=== PATIENT | female | born 1960 | race Hispanic/Latino ===

== ENCOUNTER 2016-04-05 11:45 | Emergency (ER) | payer MEDICARE ==
[2016-04-05 12:22] VITALS: BP 148/102
--- NOTE | 2016-04-05 14:25 | Emergency Department Report ---
Chief Complaint: Abdominal Pain Stated Complaint: KIDNEY PAIN/N/V - HPI History of Present Illness: 55-year-old female complaining of 2 weeks of bilateral flank pain. Patient states she was sent by her PMD to rule out acute renal failure/KRISTIE due to possible elevated creatinine as per primary care doctor as per patient patient denies any fever chills nausea or vomiting, mild increased urinary frequency - ROS Review of Systems: Bilateral flank pain worse on left and right x 2 weeks - Exam Vital Signs: Vital Signs 04/05/16 12:19 Temperature 99.8 F H Pulse Rate 88 Respiratory 18 Rate Blood Pressure 148/102 O2 Sat by Pulse 98 Oximetry Physical Exam: Left-sided CVA tenderness mild MSE screening note: Focused history and physical exam performed. Due to findings the following was ordered: Screening Assessment/Plan/Differential Dx: Flank pain, possible renal colic,? KRISTIE 1- This initial assessment/diagnostic orders/clinical plan/ treatment(s) is/are subject to change based on pt's health status, clinical progression and re- assessment by fellow clinical providers in the ED. Further treatment and workup at subsequent clinical provers discretion. Patient/guardians urged not to elope from ED as their condition may be serious if not clinically assessed and managed. 2-basic labs, BMP, CT noncontrast abdomen and pelvis, UA, urine culture ED Medical Decision Making - Lab Data Result diagrams: 04/05/16 15:34 04/05/16 15:34 ED Disposition for MSE Condition: Stable Instructions: Abdominal Pain (ED)
--- NOTE | 2016-04-05 15:14 | Cat Scan Report ---
CT scan of abdomen and pelvis without IV contrast: History: Bilateral flank pain. Findings: Normal lung bases. No pleural or pericardial effusion. Normal liver spleen and pancreas. Patient status post cholecystectomy. Normal adrenals and kidney parenchyma and bladder. No calculi or evidence of hydronephrosis. No free intraperitoneal fluid or. No evidence of adenopathy. Normal aorta. No evidence of appendicitis. No evidence of diverticulitis. Diverticulosis sigmoid and distal descending colon. Gaseous colon with moderate volume stool in colon. Impression: No acute abdominal findings. Diverticulosis sigmoid and distal descending colon.
[2016-04-05 16:09] LABS: Mucus,Urine FEW /HPF
[2016-04-05 16:17] LABS: Bilirubin,Urine NEG (Negative); Blood,Urine MOD (Negative); Ketones,Urine NEG (Negative); Leukocyte Esterase,Urine SM (Negative); Nitrite,Urine NEG (Negative); Protein,Urine <15 mg/dL mg/dL (Negative); Urobilinogen,Urine < 2.0 mg/dL (<2.0)
[2016-04-05 16:26] LABS: Basophils % (Auto) 1.3 % (0.0-1.8); Eosinophils % (Auto) 0.2 % (0.0-4.3); Hematocrit 45.8 % (30.3-42.9); Mean Corpuscular HGB Conc 33 % (30-34); Mean Corpuscular Hemoglobin 31 pg (28-32); Mean Corpuscular Volume 93 fl (79-97); Platelet Count 261 K/mm3 (140-440); Red Blood Count 4.92 M/mm3 (3.65-5.03); Red Cell Distribution Width 14.9 % (13.2-15.2); White Blood Count 7.6 K/mm3 (4.5-11.0)
[2016-04-05 16:27] LABS: BUN/Creatinine Ratio 13.63; Calcium 9.4 mg/dL (8.4-10.2); Chloride 98.2 mmol/L (98-107); Potassium 4.4 mmol/L (3.6-5.0)
--- NOTE | 2016-04-06 19:06 | ED Elopement Review ---
ED Pt Elopement review - Results review Lab results: Laboratory Tests 04/05/16 04/05/16 04/05/16 15:30 15:34 15:34 WBC 7.6 RBC 4.92 Hgb 15.0 H Hct 45.8 H MCV 93 MCH 31 MCHC 33 RDW 14.9 Plt Count 261 Lymph % (Auto) 20.9 [place] % (Auto) 4.4 Eos % (Auto) 0.2 Baso % (Auto) 1.3 Lymph # 1.6 [place] # 0.3 Eos # 0.0 Baso # 0.1 Seg Neutrophils % 73.2 H Seg Neutrophils # 5.6 Sodium 137 Potassium 4.4 Chloride 98.2 Carbon Dioxide 23 Anion Gap 20 BUN 15 Creatinine 1.1 Estimated GFR 52 BUN/Creatinine Ratio 13.63 Glucose 119 H Calcium 9.4 Total Creatine Kinase 58 Urine Color Yellow Urine Turbidity Clear Urine pH 6.0 Ur Specific [place] 1.010 Urine Protein <15 mg/dl Urine Glucose (UA) Neg Urine Ketones Neg Urine Blood Mod Urine Nitrite Neg Ur Reducing Substances Not Reportable Urine Bilirubin Neg Urine Ictotest Not Reportable Urine Urobilinogen < 2.0 Ur Leukocyte Esterase Sm Urine WBC (Auto) 3.0 Urine RBC (Auto) 1.0 U Epithel Cells (Auto) 2.0 Urine Mucus Few - Call Back decision Pt Call Back Decision: Pt to F/U with PMD
== END 2016-04-05 22:00 | disposition left against medical advice (07) ==
LOC: ED 11:45
DX: R10.9 Unspecified abdominal pain (principal); R11.2 Nausea with vomiting, unspecified; R35.8 Other polyuria; Z53.21 Procedure and treatment not carried out due to patient leaving prior to being seen by health care provider
CPT/HCPCS: 36415; 74176; 80048; 81001; 82550; 85025; 87086

== ENCOUNTER 2017-02-05 20:35 | Inpatient (IN) | payer MEDICARE ==
[2017-02-05 22:50] LABS: Anion Gap 22 mmol/L; BUN/Creatinine Ratio 14; Blood Urea Nitrogen 15 mg/dL (7-17); Carbon Dioxide 21 mmol/L (22-30); Chloride 102.2 mmol/L (98-107); Glucose 93 mg/dL (65-100); Potassium 4.4 mmol/L (3.6-5.0); Sodium 141 mmol/L (137-145)
[2017-02-05 23:06] LABS: Urine Drugs of Abuse Note Disclamer
[2017-02-05 23:40] LABS: Hemoglobin 11.9 gm/dl (10.1-14.3); Mean Corpuscular HGB Conc 31 % (30-34); Mean Corpuscular Hemoglobin 30 pg (28-32); Mean Corpuscular Volume 95 fl (79-97); Red Blood Count 4.01 M/mm3 (3.65-5.03); Red Cell Distribution Width 15.6 % (13.2-15.2); White Blood Count 11.7 K/mm3 (4.5-11.0)
[2017-02-05 23:43] LABS: Platelet Count 314 K/mm3 (140-440)
[2017-02-05 23:52] LABS: Bilirubin,Urine NEG (Negative); Blood,Urine SM (Negative); Ketones,Urine NEG (Negative); Leukocyte Esterase,Urine LG (Negative); Mucus,Urine FEW /HPF; Nitrite,Urine NEG (Negative); Protein,Urine <15 mg/dL mg/dL (Negative); Urobilinogen,Urine < 2.0 mg/dL (<2.0)
[2017-02-06] MEDS ORDERED: ZOFRAN IV ONE (08:29)
[2017-02-06] MEDS ORDERED: MORPHINE IV ONE ×2 (08:29→11:51)
--- NOTE | 2017-02-06 08:44 | Emergency Department Report ---
HPI - General Chief Complaint: Chest Pain Time Seen by Provider: 02/06/17 08:03 - HPI HPI: This is a 56-year-old female presents to the emergency department from [place] with a complaint of some midsternal left-sided chest pain that began yesterday. She took a sublingual nitroglycerin with some relief but not resolution. It started off at 10 out of 10 in intensity and is now about a 5 out of 10 and radiates towards the mid back. She has a past medical history of rheumatoid arthritis, COPD, GERD, liver disease, seizures, lupus. No recent travel. Her primary care physician is Dr. Cathy Durham and her manager heart is Dr. Ware. ED Past Medical Hx - Past Medical History Previous Medical History?: Yes Hx GERD: Yes Hx Liver Disease: Yes Hx Arthritis: Yes (rhematoid) Hx Seizures: Yes Hx COPD: Yes Additional medical history: lupus - Surgical History Past Surgical History?: Yes Hx Appendectomy: Yes Additional Surgical History: left knee replacement - Social History Smoking Status: Current Every Day Smoker Substance Use Type: None - Medications Home Medications: Home Medications Medication Instructions Recorded Confirmed Last Taken Type HYDROcodone/APAP 7.5-325 [[place] 1 each PO Q8HR PRN #12 tablet 03/03/16 02/06/17 02/05/17 Rx 7.5-325 mg TAB] Tiotropium [Spiriva] 18 mcg IH QDAY 03/03/16 02/06/17 02/05/17 History Amitriptyline [Elavil] 100 mg PO QHS 02/06/17 02/06/17 02/05/17 History AtorvaSTATin [Lipitor] 20 mg PO QHS 02/06/17 02/06/17 02/05/17 History Clonidine HCl [Kapvay] 0.1 mg PO BID 02/06/17 02/06/17 02/05/17 History Cyclobenzaprine [Flexeril] 10 mg PO TID PRN 02/06/17 02/06/17 02/05/17 History FLUoxetine HCL [Fluoxetine HCl] 80 mg PO QAM 02/06/17 02/06/17 02/05/17 History Fluticasone/Vilanterol [Breo 1 each IH DAILY 02/06/17 02/06/17 02/05/17 History Ellipta 100-25 Mcg INH] Gabapentin [Neurontin] 300 mg PO Q8HR 02/06/17 02/06/17 02/05/17 History Ipratropium/Albuterol Sulfate 1 ampul IH Q6HR 02/06/17 02/06/17 02/05/17 History [DUONEB *Not for PRN Use*] Ranitidine HCl [Acid Child Care Sitter] 150 mg PO BID 02/06/17 02/06/17 02/05/17 History levETIRAcetam [Keppra TAB] 1,000 mg PO BID 02/06/17 02/06/17 02/05/17 History ED Review of Systems ROS: Stated complaint: MEDICAL CLEARANCE Other details as noted in HPI Comment: All other systems reviewed and negative Constitutional: denies: chills, fever Eyes: denies: eye pain, eye discharge, vision change ENT: denies: ear pain, throat pain Respiratory: denies: cough, wheezing Cardiovascular: chest pain. denies: edema Gastrointestinal: denies: abdominal pain, nausea, diarrhea Genitourinary: denies: urgency, dysuria, discharge Musculoskeletal: back pain, arthralgia Skin: denies: rash, lesions Neurological: denies: headache, weakness, paresthesias Physical Exam - Physical Exam Vital Signs: Vital Signs 02/05/17 02/05/17 02/06/17 20:55 21:36 01:15 Temperature 98.6 F 98.6 F 98.4 F Pulse Rate 105 H 105 H 82 Respiratory 20 18 Rate Blood Pressure 136/78 136/76 133/74 O2 Sat by Pulse 97 97 98 Oximetry 02/06/17 02/06/17 02/06/17 04:56 08:31 08:33 Temperature 98.3 F Pulse Rate 96 H 73 Respiratory 18 15 Rate Blood Pressure 129/87 O2 Sat by Pulse 95 99 Oximetry Physical Exam: GENERAL: The patient is well-developed well-nourished. HENT: Normocephalic. Atraumatic. Patient has moist mucous membranes. EYES: Extraocular motions are intact. Pupils equal reactive to light bilaterally. NECK: Supple. Trachea is midline. CHEST/LUNGS: Clear to auscultation. There is no respiratory distress noted. Chest pain is not reproducible to palpation of the chest wall. HEART/CARDIOVASCULAR: Regular. There is no tachycardia. There is no gallop rub or murmur. ABDOMEN: Abdomen is soft, nontender. Patient has normal bowel sounds. There is no abdominal distention. SKIN: Skin is warm and dry. NEURO: The patient is awake, alert, and oriented. The patient is cooperative. The patient has no focal neurologic deficits. The patient has normal speech. MUSCULOSKELETAL: There is no tenderness or deformity. There is no limitation range of motion. There is no evidence of acute injury. ED Course Vital Signs 02/05/17 02/05/17 02/06/17 20:55 21:36 01:15 Temperature 98.6 F 98.6 F 98.4 F Pulse Rate 105 H 105 H 82 Respiratory 20 18 Rate Blood Pressure 136/78 136/76 133/74 O2 Sat by Pulse 97 97 98 Oximetry 02/06/17 02/06/17 02/06/17 04:56 08:31 08:33 Temperature 98.3 F Pulse Rate 96 H 73 Respiratory 18 15 Rate Blood Pressure 129/87 O2 Sat by Pulse 95 99 Oximetry ED Medical Decision Making - Lab Data Result diagrams: 02/05/17 21:56 02/05/17 21:56 - EKG Data -: EKG Interpreted by Me EKG shows normal: sinus rhythm, axis, intervals, QRS complexes (right bundle branch block), ST-T waves Rate: normal - EKG Data When compared to previous EKG there are: no significant change Interpretation: unchanged when compared t (03/03/16) - Radiology Data Radiology results: report reviewed, image reviewed interpreted by me: Chest x-ray does not show any acute process. There are no pleural effusions, obvious pneumonia and there is no pneumothorax. VENTILATION/PERFUSION LUNG SCAN: 02/06/17 CLINICAL: Shortness of breath TECHNIQUE: 15.0 millicuries of xenon-133 was administered by aerosol and 5.0 mCi of technetium 99m MAA was administered intravenously. Comparison is made to a same day chest x-ray. FINDINGS: Inhalation of Xenon gas demonstrates a normal distribution of the activity throughout both lungs. The wash out phases demonstrate moderate bilateral predominantly basal retention of activity. After injection of Technetium 99m macroaggregated albumin gamma camera imaging of the lungs in multiple projections demonstrates normal pulmonary contours with a relatively homogeneous distribution of activity. No suspicious focal areas of perfusion deficiency are identified. IMPRESSION: Low probability for pulmonary embolus. Transcribed By: REF Dictated By: ROBINSON RENO MD Electronically Authenticated By: ROBINSON RENO MD Signed Date/Time: 02/06/17 1417 - Medical Decision Making 56-year-old female presents with some midsternal left-sided chest pain. So far labs within mostly unremarkable including negative troponins 2 which did have a slightly elevated and equivocal d-dimer. A ventilation perfusion scan was done that came back as a low probability for a pulmonary embolus. Chest x-ray did not show any acute process. The patient has not had a full cardiac workup in a while including stress test and/or cardiac cath and therefore my plan is to admit her to the hospital for further evaluation and either a stress test or cardio consultation. The patient has been accepted for admission by the hospitalist, Dr. Sharpe. - Differential Diagnosis [place], PE, Costochondritis, Pneumonia Critical Care Time: No Critical care attestation.: If time is entered above; I have spent that time in minutes in the direct care of this critically ill patient, excluding procedure time. ED Disposition Clinical Impression: Chest pain Qualifiers: Chest pain type: unspecified Qualified Code(s): R07.9 - Chest pain, unspecified Arthralgia Qualifiers: Joint pain location: unspecified Qualified Code(s): M25.50 - Pain in unspecified joint Disposition: DC-09 OP ADMIT IP TO THIS HOSP Is pt being admited?: Yes Does the pt Need Aspirin: Yes Condition: Stable Instructions: Chest Pain (ED) Referrals: PRIMARY CARE, [Primary Care Provider] - 3-5 Days Time of Disposition: 15:11
--- NOTE | 2017-02-06 09:46 | XRay Report ---
AP CHEST : 02/06/17 CLINICAL: Chest pain. COMPARISON:11/01/11 FINDINGS: Normal heart and pulmonary vessels. The lungs are normally expanded and clear. A right [id number] tip is in the distal SVC. Status post cervical fusion with hardware at C6-7 and status post left shoulder replacement. IMPRESSION: No acute cardiopulmonary process.
[2017-02-06] MEDS ORDERED: MORPHINE ONE (11:54)
--- NOTE | 2017-02-06 14:24 | Nuclear Medicine Report ---
VENTILATION/PERFUSION LUNG SCAN: 02/06/17 CLINICAL: Shortness of breath TECHNIQUE: 15.0 millicuries of xenon-133 was administered by aerosol and 5.0 mCi of technetium 99m MAA was administered intravenously. Comparison is made to a same day chest x-ray. FINDINGS: Inhalation of Xenon gas demonstrates a normal distribution of the activity throughout both lungs. The wash out phases demonstrate moderate bilateral predominantly basal retention of activity. After injection of Technetium 99m macroaggregated albumin gamma camera imaging of the lungs in multiple projections demonstrates normal pulmonary contours with a relatively homogeneous distribution of activity. No suspicious focal areas of perfusion deficiency are identified. IMPRESSION: Low probability for pulmonary embolus.
[2017-02-06] MEDS ORDERED: BABY ASPIRIN PO ONE (15:12)
--- NOTE | 2017-02-06 15:49 | History and Physical Report ---
History of Present Illness Date of examination: 02/06/17 Date of admission: 02/06/17 Chief complaint: Chest pain since yesterdat History of present illness: See Dictated H/p on reports Medications and Allergies Allergies Allergy/AdvReac Type Severity Reaction Status Date / Time divalproex sodium Allergy Itching Verified 03/02/16 17:13 [From Depakote] phenytoin sodium Allergy Itching Verified 03/02/16 17:13 [From Dilantin] phenytoin sodium extended Allergy Itching Verified 03/02/16 17:13 [From Dilantin] Tetracyclines Allergy Itching Verified 03/02/16 17:13 NSAIDS (Non-Steroidal AdvReac "KIDNEYS" Verified 03/02/16 17:13 Anti-Inflamma Home Medications Medication Instructions Recorded Confirmed Last Taken Type HYDROcodone/APAP 7.5-325 [[place] 1 each PO Q8HR PRN #12 tablet 03/03/16 02/06/17 02/05/17 Rx 7.5-325 mg TAB] Tiotropium [Spiriva] 18 mcg IH QDAY 03/03/16 02/06/17 02/05/17 History Amitriptyline [Elavil] 100 mg PO QHS 02/06/17 02/06/17 02/05/17 History AtorvaSTATin [Lipitor] 20 mg PO QHS 02/06/17 02/06/17 02/05/17 History Clonidine HCl [Kapvay] 0.1 mg PO BID 02/06/17 02/06/17 02/05/17 History Cyclobenzaprine [Flexeril] 10 mg PO TID PRN 02/06/17 02/06/17 02/05/17 History FLUoxetine HCL [Fluoxetine HCl] 80 mg PO QAM 02/06/17 02/06/17 02/05/17 History Fluticasone/Vilanterol [Breo 1 each IH DAILY 02/06/17 02/06/17 02/05/17 History Ellipta 100-25 Mcg INH] Gabapentin [Neurontin] 300 mg PO Q8HR 02/06/17 02/06/17 02/05/17 History Ipratropium/Albuterol Sulfate 1 ampul IH Q6HR 02/06/17 02/06/17 02/05/17 History [DUONEB *Not for PRN Use*] Ranitidine HCl [Acid Scuba Instructor] 150 mg PO BID 02/06/17 02/06/17 02/05/17 History levETIRAcetam [Keppra TAB] 1,000 mg PO BID 02/06/17 02/06/17 02/05/17 History Exam - Constitutional Vitals: Temp Pulse Resp BP Pulse Ox 98.3 F 73 15 129/87 99 02/06/17 04:56 02/06/17 08:33 02/06/17 08:31 02/06/17 04:56 02/06/17 08:31 Results - Labs CBC & Chem 7: 02/05/17 21:56 02/05/17 21:56 Labs: Laboratory Last Values WBC 11.7 K/mm3 (4.5-11.0) H 02/05/17 21:56 RBC 4.01 M/mm3 (3.65-5.03) 02/05/17 21:56 Hgb 11.9 gm/dl (10.1-14.3) 02/05/17 21:56 Hct 38.0 % (30.3-42.9) 02/05/17 21:56 MCV 95 fl (79-97) 02/05/17 21:56 MCH 30 pg (28-32) 02/05/17 21:56 MCHC 31 % (30-34) 02/05/17 21:56 RDW 15.6 % (13.2-15.2) H 02/05/17 21:56 Plt Count 314 K/mm3 (140-440) 02/05/17 21:56 Lymph % (Auto) Head Girls Golf Coach 02/05/17 21:56 [place] % (Auto) Head Girls Golf Coach 02/05/17 21:56 Eos % (Auto) Head Girls Golf Coach 02/05/17 21:56 Baso % (Auto) [employer] Girls [employer] Coach 02/05/17 21:56 Lymph # [employer] Girls [employer] Coach 02/05/17 21:56 [place] # [employer] Girls Golf Coach 02/05/17 21:56 Eos # [employer] Girls Golf Coach 02/05/17 21:56 Baso # [employer] Girls Golf Coach 02/05/17 21:56 Seg Neutrophils % [employer] Girls Golf Coach 02/05/17 21:56 Seg Neutrophils # Head Girls Golf Coach 02/05/17 21:56 D-Dimer 312.76 ng/mlDDU (0-234) H 02/06/17 08:37 Sodium 141 mmol/L (137-145) 02/05/17 21:56 Potassium 4.4 mmol/L (3.6-5.0) 02/05/17 21:56 Chloride 102.2 mmol/L (98-107) 02/05/17 21:56 Carbon Dioxide 21 mmol/L (22-30) L 02/05/17 21:56 Anion Gap 22 mmol/L 02/05/17 21:56 BUN 15 mg/dL (7-17) 02/05/17 21:56 Creatinine 1.1 mg/dL (0.7-1.2) 02/05/17 21:56 Estimated GFR 52 ml/min 02/05/17 21:56 BUN/Creatinine Ratio 14 % 02/05/17 21:56 Glucose 93 mg/dL (65-100) 02/05/17 21:56 Calcium 9.0 mg/dL (8.4-10.2) 02/05/17 21:56 Troponin T < 0.010 ng/mL (0.00-0.029) 02/06/17 09:33 Urine Color Yellow (Yellow) 02/05/17 Unknown Urine Turbidity Clear (Clear) 02/05/17 Unknown Urine pH 6.0 (5.0-7.0) 02/05/17 Unknown Ur Specific [place] 1.017 (1.003-1.030) 02/05/17 Unknown Urine Protein <15 mg/dl mg/dL (Negative) 02/05/17 Unknown Urine Glucose (UA) Neg mg/dL (Negative) 02/05/17 Unknown Urine Ketones Neg mg/dL (Negative) 02/05/17 Unknown Urine Blood Sm (Negative) 02/05/17 Unknown Urine Nitrite Neg (Negative) 02/05/17 Unknown Urine Bilirubin Neg (Negative) 02/05/17 Unknown Urine Urobilinogen < 2.0 mg/dL (<2.0) 02/05/17 Unknown Ur Leukocyte Esterase Lg (Negative) 02/05/17 Unknown Urine WBC (Auto) 4.0 /HPF (0.0-6.0) 02/05/17 Unknown Urine RBC (Auto) 8.0 /HPF (0.0-6.0) 02/05/17 Unknown U Epithel Cells (Auto) 1.0 /HPF (0-13.0) 02/05/17 Unknown Hyaline Casts 1 /LPF 02/05/17 Unknown Urine Mucus Few /HPF 02/05/17 Unknown Urine Opiates Screen Presumptive negative 02/05/17 Unknown Urine Methadone Screen Presumptive negative 02/05/17 Unknown Ur Barbiturates Screen Presumptive positive 02/05/17 Unknown Ur Phencyclidine Scrn Presumptive negative 02/05/17 Unknown Ur Amphetamines Screen Presumptive negative 02/05/17 Unknown U Benzodiazepines Scrn Presumptive negative 02/05/17 Unknown Urine Cocaine Screen Presumptive negative 02/05/17 Unknown U Marijuana (THC) Screen Presumptive negative 02/05/17 Unknown Drugs of Abuse Note Disclamer 02/05/17 Unknown Plasma/Serum Alcohol < 0.01 gm% (0-0.07) 02/05/17 21:56
[2017-02-06] MEDS ORDERED: FLEXERIL PO PRN (15:51)
[2017-02-06] MEDS ORDERED: DULCOLAX PR PRN (15:55)
[2017-02-06] MEDS ORDERED: TYLENOL PO PRN (15:55)
[2017-02-06] MEDS ORDERED: MILK OF MAGNESIA PO PRN (15:55)
[2017-02-06] MEDS ORDERED: NON-FORMULARY (Ranitidine Hcl [Acid Reducer] 150 MG) PO SCH (16:00)
[2017-02-06] MEDS ORDERED: NON-FORMULARY (Fluticasone/Vilanterol [Breo Ellipta 100-25 Mcg Inh] 1 EACH) IH SCH (16:00)
[2017-02-06] MEDS ORDERED: NON-FORMULARY (Levetiracetam [Keppra Tab] 1,000 MG) PO SCH (16:00)
[2017-02-06] MEDS ORDERED: NON-FORMULARY (Clonidine Hcl [Kapvay] 0.1 MG) PO SCH (16:00)
[2017-02-06] MEDS: LOVENOX SUB-Q SCH (16:00)
[2017-02-06] MEDS: NORCO 7.5/325 PO PRN (16:19)
[2017-02-06 17:20] LABS: Creatine Kinase MB 2.9 ng/mL (0.0-4.0)
[2017-02-06 17:21] LABS: Creatine Kinase 120 units/L (30-135)
[2017-02-06] MEDS: PULMICORT IH SCH (19:53)
[2017-02-06] MEDS: BROVANA NEBU IH SCH (19:53)
[2017-02-06] MEDS: NEURONTIN PO SCH (20:30)
[2017-02-06] MEDS: KEPPRA PO SCH (20:30)
[2017-02-06] MEDS: CATAPRES PO SCH (21:00)
[2017-02-06] MEDS ORDERED: SPIRIVA IH SCH (21:15)
[2017-02-06] MEDS: PEPCID PO SCH (21:59)
[2017-02-06] MEDS ORDERED: ELAVIL PO SCH (22:00)
[2017-02-07 01:12] LABS: Creatine Kinase 45 units/L (30-135)
[2017-02-07 01:26] LABS: Creatine Kinase MB < 1.0 ng/mL (0.0-4.0)
[2017-02-07] MEDS: NORCO 7.5/325 PO PRN ×2 (03:49→11:52)
[2017-02-07] MEDS: ZOFRAN IV PRN ×2 (03:50→11:52)
--- NOTE | 2017-02-07 05:27 | Event Note ---
Date: 02/06/17 See Dictated H/p in reports
--- NOTE | 2017-02-07 05:57 | History and Physical Report ---
CHIEF COMPLAINT: Chest pain since yesterday. HISTORY OF PRESENT ILLNESS: A 56-year-old female presents to the Emergency Room from [place] with a complaint of retrosternal left-sided chest pain. Pain is about 10 on a scale of 1-10. Intermittent in nature. No exacerbating or relieving factors. No stents in the past. No recent stress test. No recent travel. The patient has no diaphoresis, palpitations, or shortness of breath. Retrosternal chest pain with radiation to left side of the chest. PAST MEDICAL HISTORY: Significant for gastroesophageal reflux disease, liver disease, rheumatoid arthritis, seizure disorder, COPD, and lupus. PAST SURGICAL HISTORY: Appendectomy and left knee replacement. SOCIAL HISTORY: Smokes over a pack a day. CURRENT MEDICATIONS: Clonidine 0.1 b.i.d., Spiriva 18 mcg p.o. daily, amitriptyline 100 mg p.o. at bedtime, Flexeril 10 mg 3 times a day, fluoxetine 80 mg p.o. q.a.m., Breo inhaler 1 puff each day, DuoNeb 1 ampule every 6 hours, Ranitidine 150 mg twice a day, and Keppra 1000 mg twice a day. REVIEW OF SYSTEMS: HEENT: No sore throat, no postnasal drip. NECK: No neck pain. CARDIOVASCULAR AND RESPIRATORY SYSTEM: Retrosternal chest pain present. No exacerbating or relieving factors. See history and physical. GASTROINTESTINAL: No nausea, no vomiting, no diarrhea. MUSCULOSKELETAL SYSTEM: No joint pains. GENITOURINARY SYSTEM: No dysuria, no flank pain. CENTRAL NERVOUS SYSTEM: No syncope, no seizures. SKIN: No rashes. PHYSICAL EXAMINATION: GENERAL: Middle-aged female, looks older than her age. VITAL SIGNS: Blood pressure is 88/45 and 103/63, temperature is 97.4, pulse is 53, and respirations are 20. HEENT: Unremarkable. Pupils equal and reactive. NECK: Supple, no lymphadenopathy, no thyromegaly. No chest wall tenderness. LUNGS: Clear to auscultation and percussion. Good air entry. CARDIOVASCULAR: S1, S2 heard. No gallop, no murmur, no rub. Apical impulse in left fifth intercostal space and midclavicular line. ABDOMEN: Soft and benign. No hepatosplenomegaly, no guarding, no rigidity. Hernial orifices are normal. EXTREMITIES: Good pedal pulses. No pedal edema. CENTRAL NERVOUS SYSTEM: Alert and oriented x 4, nonfocal exam. Reflexes are normal. LABORATORY DATA AND EKG: EKG shows a normal sinus rhythm, right bundle branch block, nonspecific ST-T wave changes. Labs are significant for white count of 11,700, hemoglobin is 11.9, hematocrit is 38.0, platelet count is 314,000. Electrolytes are normal. Troponin is 0.01 and CK-MB is 2.9 and CK is 120. The urine was nonspecific. Specific gravity was 1.017. Tox screen was essentially negative except for barbiturates. ASSESSMENT AND PLAN: 1. Acute coronary syndrome, rule out myocardial infarction protocol. Serial cardiac enzymes and Lexiscan ordered. Also, Cardiology consult requested. The patient follows with Dr. Ware as outpatient and Cardiology. 2. Chronic obstructive pulmonary disease. Continue Breo and DuoNeb. 3. Depression. Continue amitriptyline 100 mg p.o. at bedtime. 4. Hyperlipidemia. Continue Lipitor 20 mg p.o. at bedtime. 5. Hypertension. Continue clonidine 0.1 b.i.d. 6. Muscle spasms. Continue Flexeril 10 mg 3 times a day. 7. Seizure disorder. Continue Keppra 1000 mg twice a day. 8. Deep venous thrombosis prophylaxis, Lovenox 40 mg subcutaneous daily. Cardiology consult requested. JOB# [id number] VSM/NTS
[2017-02-07] MEDS: NEURONTIN PO SCH ×2 (05:59→13:52)
[2017-02-07 08:09] LABS: Basophils % (Auto) 1.2 % (0.0-1.8); Eosinophils % (Auto) 2.8 % (0.0-4.3); Hematocrit 40.7 % (30.3-42.9); Hemoglobin 12.8 gm/dl (10.1-14.3); Mean Corpuscular HGB Conc 32 % (30-34); Mean Corpuscular Hemoglobin 30 pg (28-32); Mean Corpuscular Volume 94 fl (79-97); Platelet Count 249 K/mm3 (140-440); Red Blood Count 4.32 M/mm3 (3.65-5.03); Red Cell Distribution Width 15.4 % (13.2-15.2); White Blood Count 5.7 K/mm3 (4.5-11.0)
[2017-02-07 08:30] LABS: Creatine Kinase 48 units/L (30-135)
[2017-02-07 08:42] LABS: Alanine Aminotransferase 103 units/L (7-56); Albumin 3.1 g/dL (3.9-5); Albumin/Globulin Ratio 0.9 %; Alkaline Phosphatase 162 units/L (35-129); Anion Gap 17 mmol/L; BUN/Creatinine Ratio 13; Blood Urea Nitrogen 12 mg/dL (7-17); Calcium 8.7 mg/dL (8.4-10.2); Carbon Dioxide 23 mmol/L (22-30); Glucose 96 mg/dL (65-100); Potassium 4.4 mmol/L (3.6-5.0); Sodium 141 mmol/L (137-145); Total Protein 6.4 g/dL (6.3-8.2)
[2017-02-07 09:18] LABS: Creatine Kinase MB < 1.0 ng/mL (0.0-4.0)
[2017-02-07] MEDS: BROVANA NEBU IH SCH (09:22)
[2017-02-07] MEDS: PULMICORT IH SCH (09:23)
[2017-02-07] MEDS ORDERED: FLUOXETINE HCL 80 MG PO SCH (10:00)
[2017-02-07] MEDS ORDERED: PROzac PO SCH (10:00)
[2017-02-07] MEDS: LOVENOX SUB-Q SCH (10:37)
[2017-02-07] MEDS: CATAPRES PO SCH (10:38)
[2017-02-07] MEDS: KEPPRA PO SCH (10:39)
[2017-02-07] MEDS: PEPCID PO SCH (10:55)
[2017-02-07 12:50] VITALS: BP 91/60
[2017-02-07] MEDS ORDERED: FLUSH HEPARIN IV ONE (14:03)
--- NOTE | 2017-02-07 15:18 | Discharge Summary ---
Providers - Providers Date of Admission: 02/06/17 15:55 Date of discharge: 02/07/17 Attending physician: KELLY GARCIA None Primary care physician: MAINTENANCE WORKER [employer]SE TRAILER Hospitalization Condition: Stable Hospital course: See Dictated discharge summary Disposition: DC-07 LEFT AGAINST MED ADVICE Time spent for discharge: 20 minutes Core Measure Documentation - Palliative Care Palliative Care/ Comfort Measures: Not Applicable - Core Measures Any of the following diagnoses?: none Exam - Constitutional Vitals: Temp Pulse Resp BP Pulse Ox 98.4 F 61 18 91/60 96 02/07/17 12:17 02/07/17 12:17 02/07/17 12:17 02/07/17 12:17 02/07/17 12:17 General appearance: Present: no acute distress, well-nourished - EENT Eyes: Present: PERRL ENT: hearing intact, clear oral mucosa - Neck Neck: Present: supple, normal ROM - Respiratory Respiratory effort: normal Respiratory: bilateral: CTA - Cardiovascular Heart Sounds: Present: S1 & S2. Absent: rub, click - Extremities Extremities: pulses symmetrical, No edema Peripheral Pulses: within normal limits - Abdominal General gastrointestinal: Present: soft, non-tender, non-distended, normal bowel sounds Female genitourinary: Present: normal - Integumentary Integumentary: Present: clear, warm, dry - Musculoskeletal Musculoskeletal: gait normal, strength equal bilaterally - Psychiatric Psychiatric: appropriate mood/affect, intact judgment & insight - Neurologic Neurologic: CNII-XII intact, moves all extremities Plan Activity: no restrictions Diet: low cholesterol, low salt Follow up with: PRIMARY CARE, [Primary Care Provider] - 3-5 Days Forms: AMA Form
[2017-02-07] MEDS ORDERED: DUONEB *Not for PRN Use IH SCH (22:00)
--- NOTE | 2017-02-12 10:51 | Query- Chest Pain ---
Dear ____Annemarie Date:____02/12/17 Esthetician Facialist/CDS: Radha / Jose Guadalupe Phone#:____[phone] Exercise your independent professional judgment when responding to query. Questions asked do not imply a particular answer is desired or expected. We greatly appreciate your clarification on this issue. Clinical Documentation States: 56 year old female was admitted on 02/06/17 The ED documentation (Dr. Frances) states " This is a 56-year-old female presents to the emergency department from [place] with a complaint of some midsternal left-sided chest pain. She has a past medical history of rheumatoid arthritis, COPD, GERD, liver disease, seizures, lupus" The H&P (Dr. Sharpe) states " Chest pain since yesterday, Assessment and plan: 1. Acute coronary syndrome 2. COPD 6. Muscle spasms " The discharge summary (Dr. Sharpe) states " Disposition: DC-07 LEFT AGAINST MED ADVICE" Please document the etiology of Chest Pain: [ ] Myocardial Infarction [ ] Pneumonia [ ] Mediastinitis [ ] Costochondritis [ ] Pulmonary Embolism [x ] Coronary Artery Disease [ ] GERD [ ] Other: [ ] Comment/Explanation: Present on Admission: [ x] Yes (Y) [ ] Clinically undeterminable (W) [ ] No(N) Please document response in your Progress Notes and/or Discharge Summary and indicate if the condition was present on admission. BISI
--- NOTE | 2017-02-19 08:13 | Discharge Summary ---
HOSPITAL COURSE: The patient is admitted for acute coronary syndrome, rule out myocardial infarction protocol. Serial cardiac enzymes and Lexiscan were ordered. Chronic obstructive pulmonary disease for which she was continued on Breo and DuoNebs. Depression, she was continued on amitriptyline 100 mg p.o. at bedtime. Hyperlipidemia. She was continued on Lipitor 20 mg p.o. at bedtime. Hypertension, she was continued on clonidine 0.1 p.o. b.i.d. For seizure disorder, she was continued on Keppra 1000 mg twice a day and for muscle spasms she was continued on Flexeril 10 mg 3 times a day. The patient was counseled about nicotine dependence. Workup was initiated. A D-dimer was a bit high 312.76. Hemoglobin and hematocrit were normal at 11.9 and 38. Electrolytes were normal. AST, ALT are high 86/103, but this was on the 2nd day of admission. Cardiac enzymes were negative. Drug screen was positive for barbiturates. The patient was supposed to get Lexiscan because of the chest pain, but patient decided to go against medical advice. The patient had ventilation perfusion scan, which was low probability for pulmonary embolism. The patient went AMA. DISCHARGE DIAGNOSES: 1. Acute coronary syndrome. 2. Chronic obstructive pulmonary disease. 3. Depression. 4. Hyperlipidemia. 5. Hypertension. 6. Seizure disorder. 7. Muscle spasms. 8. Nicotine dependence. PLAN: The patient to continue home medications. No prescriptions were given. The patient to follow up with a PCP. The patient was counseled about the dangers of leaving against medical advice. Follow with PCP in 1 week. JOB# [id number] PEDRO PABLO/NTS
== END 2017-02-07 14:44 | disposition left against medical advice (07) | DRG 303 ==
LOC: ED 20:35 → 4A 02-06 15:55
PROVIDERS: ADMIT Internal Medicine; ATTEND Internal Medicine
DX: I25.10 Atherosclerotic heart disease of native coronary artery without angina pectoris (principal); J44.9 Chronic obstructive pulmonary disease, unspecified; E78.5 Hyperlipidemia, unspecified; F32.9 Major depressive disorder, single episode, unspecified; I10 Essential (primary) hypertension; Z53.21 Procedure and treatment not carried out due to patient leaving prior to being seen by health care provider; M06.9 Rheumatoid arthritis, unspecified; K21.9 Gastro-esophageal reflux disease without esophagitis; Z96.652 Presence of left artificial knee joint; F17.210 Nicotine dependence, cigarettes, uncomplicated; M25.50 Pain in unspecified joint; G40.909 Epilepsy, unspecified, not intractable, without status epilepticus; M62.838 Other muscle spasm; Z90.49 Acquired absence of other specified parts of digestive tract
CPT/HCPCS: 36415; 71010; 78582; 80048; 80053; 80307; 80320; 81001; 82550; 82553; 84484; 85025; 85379; 93005; 93010; 94640; 96372; 96374; 96375; 96376; A9270-GY; A9540; A9558; G0480; J1642; J1650; J2270; J2405

== ENCOUNTER 2017-02-08 15:20 | Inpatient (IN) | payer MEDICARE ==
[2017-02-08 17:33] LABS: Basophils % (Auto) 0.8 % (0.0-1.8); Hematocrit 40.6 % (30.3-42.9); Hemoglobin 13.3 gm/dl (10.1-14.3); Mean Corpuscular HGB Conc 33 % (30-34); Mean Corpuscular Hemoglobin 30 pg (28-32); Mean Corpuscular Volume 91 fl (79-97); Platelet Count 312 K/mm3 (140-440); Red Blood Count 4.44 M/mm3 (3.65-5.03); Red Cell Distribution Width 14.8 % (13.2-15.2); White Blood Count 8.6 K/mm3 (4.5-11.0)
[2017-02-08 17:52] LABS: Anion Gap 21 mmol/L; BUN/Creatinine Ratio 11; Blood Urea Nitrogen 12 mg/dL (7-17); Calcium 9.1 mg/dL (8.4-10.2); Carbon Dioxide 22 mmol/L (22-30); Chloride 105.3 mmol/L (98-107); Glucose 91 mg/dL (65-100); Potassium 4.1 mmol/L (3.6-5.0); Sodium 144 mmol/L (137-145)
[2017-02-09] MEDS ORDERED: MORPHINE IV ONE (02:32)
--- NOTE | 2017-02-09 02:33 | Emergency Department Report ---
ED General Adult HPI - General Chief complaint: Chest Pain Stated complaint: CHEST PAIN Time Seen by Provider: 02/09/17 02:02 Source: patient Mode of arrival: Ambulatory Limitations: No Limitations - History of Present Illness Initial comments: She has a 56-year-old female past medical history of hypertension, urine and liver disease who presents with chest pain. Patient states that chest pain is located in the middle of her chest is a 7 out of 10 as an achy type of pain it does not radiate anywhere. She states that she was here in the hospital yesterday however she had to leave AMA from the hospital. She denies having any leg pain or swelling. No nausea or vomiting. Severity scale (0 -10): 5 - Related Data Home Medications Medication Instructions Recorded Confirmed Last Taken Tiotropium [Spiriva] 18 mcg IH QDAY 03/03/16 02/09/17 02/05/17 Amitriptyline [Elavil] 50 mg PO QHS 02/06/17 02/09/17 02/05/17 AtorvaSTATin [Lipitor] 20 mg PO QHS 02/06/17 02/09/17 02/05/17 Clonidine HCl [Kapvay] 0.1 mg PO BID 02/06/17 02/09/17 02/05/17 Cyclobenzaprine [Flexeril] 10 mg PO TID PRN 02/06/17 02/09/17 02/05/17 FLUoxetine HCL [Fluoxetine HCl] 80 mg PO QAM 02/06/17 02/09/17 02/05/17 Fluticasone/Vilanterol [Breo 1 each IH DAILY 02/06/17 02/09/17 02/05/17 Ellipta 100-25 Mcg INH] Gabapentin [Neurontin] 300 mg PO Q8HR 02/06/17 02/09/17 02/05/17 Ipratropium/Albuterol Sulfate 1 ampul IH Q6HR 02/06/17 02/09/17 02/05/17 [DUONEB *Not for PRN Use*] Ranitidine HCl [Acid Paymaster Of Purses] 150 mg PO BID 02/06/17 02/09/17 02/05/17 levETIRAcetam [Keppra TAB] 1,000 mg PO BID 02/06/17 02/09/17 02/05/17 Previous Rx's Medication Instructions Recorded Last Taken Type HYDROcodone/APAP 7.5-325 [[place] 1 each PO Q8HR PRN #12 tablet 03/03/16 02/05/17 Rx 7.5-325 mg TAB] Allergies Allergy/AdvReac Type Severity Reaction Status Date / Time divalproex sodium Allergy Itching Verified 03/02/16 17:13 [From Depakote] phenytoin sodium Allergy Itching Verified 03/02/16 17:13 [From Dilantin] phenytoin sodium extended Allergy Itching Verified 03/02/16 17:13 [From Dilantin] Tetracyclines Allergy Itching Verified 03/02/16 17:13 NSAIDS (Non-Steroidal AdvReac "KIDNEYS" Verified 03/02/16 17:13 Anti-Inflamma ED Review of Systems ROS: Stated complaint: CHEST PAIN Other details as noted in HPI Constitutional: denies: chills, fever Eyes: denies: eye pain, eye discharge, vision change ENT: denies: ear pain, throat pain Respiratory: denies: cough, shortness of breath, wheezing Cardiovascular: chest pain. denies: palpitations Endocrine: no symptoms reported Gastrointestinal: denies: abdominal pain, nausea, diarrhea Genitourinary: denies: urgency, dysuria, discharge Musculoskeletal: denies: back pain, joint swelling, arthralgia Skin: denies: rash, lesions Neurological: denies: headache, weakness, paresthesias Psychiatric: denies: anxiety, depression Hematological/Lymphatic: denies: easy bleeding, easy bruising ED Past Medical Hx - Past Medical History Hx Congestive Heart Failure: No Hx Diabetes: No Hx GERD: Yes Hx Liver Disease: Yes Hx Arthritis: Yes (rhematoid) Hx Seizures: Yes Hx Psychiatric Treatment: Yes (bipolar) Hx Asthma: No Hx COPD: Yes Additional medical history: lupus - Surgical History Hx Appendectomy: Yes Additional Surgical History: left knee replacement,torn LT shoulder replacement.total hysterectomy,C-Spine effusion,L-4 herniated - Social History Smoking Status: Current Every Day Smoker Substance Use Type: None - Medications Home Medications: Home Medications Medication Instructions Recorded Confirmed Last Taken Type HYDROcodone/APAP 7.5-325 [[place] 1 each PO Q8HR PRN #12 tablet 03/03/16 02/09/17 02/05/17 Rx 7.5-325 mg TAB] Tiotropium [Spiriva] 18 mcg IH QDAY 03/03/16 02/09/17 02/05/17 History Amitriptyline [Elavil] 50 mg PO QHS 02/06/17 02/09/17 02/05/17 History AtorvaSTATin [Lipitor] 20 mg PO QHS 02/06/17 02/09/17 02/05/17 History Clonidine HCl [Kapvay] 0.1 mg PO BID 02/06/17 02/09/17 02/05/17 History Cyclobenzaprine [Flexeril] 10 mg PO TID PRN 02/06/17 02/09/17 02/05/17 History FLUoxetine HCL [Fluoxetine HCl] 80 mg PO QAM 02/06/17 02/09/17 02/05/17 History Fluticasone/Vilanterol [Breo 1 each IH DAILY 02/06/17 02/09/17 02/05/17 History Ellipta 100-25 Mcg INH] Gabapentin [Neurontin] 300 mg PO Q8HR 02/06/17 02/09/17 02/05/17 History Ipratropium/Albuterol Sulfate 1 ampul IH Q6HR 02/06/17 02/09/17 02/05/17 History [DUONEB *Not for PRN Use*] Ranitidine HCl [Acid Paymaster Of Purses] 150 mg PO BID 02/06/17 02/09/17 02/05/17 History levETIRAcetam [Keppra TAB] 1,000 mg PO BID 02/06/17 02/09/17 02/05/17 History ED Physical Exam - General Limitations: No Limitations General appearance: alert, in no apparent distress - Head Head exam: Present: atraumatic, normocephalic - Eye Eye exam: Present: normal appearance - ENT ENT exam: Present: mucous membranes moist - Neck Neck exam: Present: normal inspection - Respiratory Respiratory exam: Present: normal lung sounds bilaterally. Absent: respiratory distress - Cardiovascular Cardiovascular Exam: Present: regular rate, normal rhythm. Absent: systolic murmur, diastolic murmur, rubs, gallop - GI/Abdominal GI/Abdominal exam: Present: soft, normal bowel sounds - Extremities Exam Extremities exam: Present: normal inspection - Back Exam Back exam: Present: normal inspection - Neurological Exam Neurological exam: Present: alert, oriented X3 - Psychiatric Psychiatric exam: Present: normal affect, normal mood - Skin Skin exam: Present: warm, dry, intact, normal color. Absent: rash ED Course Vital Signs 02/08/17 02/09/17 16:43 01:51 Temperature 99.6 F Pulse Rate 89 Respiratory 18 18 Rate Blood Pressure 150/93 O2 Sat by Pulse 100 98 Oximetry ED Medical Decision Making - Lab Data Result diagrams: 02/08/17 17:12 02/08/17 17:12 Lab Results 02/08/17 02/08/17 02/08/17 Range/Units 17:12 17:12 22:59 WBC 8.6 (4.5-11.0) K/mm3 RBC 4.44 (3.65-5.03) M/mm3 Hgb 13.3 (10.1-14.3) gm/dl Hct 40.6 (30.3-42.9) % MCV 91 (79-97) fl MCH 30 (28-32) pg MCHC 33 (30-34) % RDW 14.8 (13.2-15.2) % Plt Count 312 (140-440) K/mm3 Lymph % (Auto) 25.7 (13.4-35.0) % [place] % (Auto) 6.3 (0.0-7.3) % Eos % (Auto) 1.0 (0.0-4.3) % Baso % (Auto) 0.8 (0.0-1.8) % Lymph # 2.2 (1.2-5.4) K/mm3 [place] # 0.5 (0.0-0.8) K/mm3 Eos # 0.1 (0.0-0.4) K/mm3 Baso # 0.1 (0.0-0.1) K/mm3 Seg Neutrophils % 66.2 (40.0-70.0) % Seg Neutrophils # 5.7 (1.8-7.7) K/mm3 Sodium 144 (137-145) mmol/L Potassium 4.1 (3.6-5.0) mmol/L Chloride 105.3 (98-107) mmol/L Carbon Dioxide 22 (22-30) mmol/L Anion Gap 21 mmol/L BUN 12 (7-17) mg/dL Creatinine 1.1 (0.7-1.2) mg/dL Estimated GFR 52 ml/min BUN/Creatinine Ratio 11 % Glucose 91 (65-100) mg/dL Calcium 9.1 (8.4-10.2) mg/dL Troponin T < 0.010 < 0.010 (0.00-0.029) ng/mL - EKG Data -: EKG Interpreted by Me - EKG Data 02/09/17 03:58 EKG: Shows normal sinus rhythm right bundle branch block and right axis deviation nonspecific T-wave abnormality - Medical Decision Making Chief medical diagnosis: Non-STEMI Differential medical diagnosis: GERD, metabolic abnormality I'll get CBC, CMP, troponin, EKG, IV morphine Patient's lab work and EKG on remarkable however since patient was receiving admitted and left the hospital AMA I will admit patient to the hospitalist service. Discussed outpatient patient received plan. Critical care attestation.: If time is entered above; I have spent that time in minutes in the direct care of this critically ill patient, excluding procedure time. ED Disposition Clinical Impression: Chest pain Qualifiers: Chest pain type: unspecified Qualified Code(s): R07.9 - Chest pain, unspecified Disposition: OP ADMIT IP TO THIS HOSP Is pt being admited?: Yes Does the pt Need Aspirin: No Condition: Stable Instructions: Chest Pain (ED) Referrals: PRIMARY CARE, [Primary Care Provider] - 3-5 Days
--- NOTE | 2017-02-09 03:50 | History and Physical Report ---
History of Present Illness Chief complaint: I have pain in my chest History of present illness: 56 YO Female with HTN, RA, Seizure Disorder, Bipolar, nicotine Dependence, Obesity, presents to ED for evaluation of chest pain. Pt states that she has experienced pain in her chest over the past 2 days. Pt stated that pain is 5-10/ 10, Substernal, Intermittent, nonradiating, worse with exertion, relieved with rest, and is associated with shortness of breath. Pt acknowledges positive family history of CAD. Pt denies fever, chills, palpitations, syncope, prolonged immobility/travel, individual/family history of DVT/PE. Pt seen and evaluated in ED and found to have symptoms consistent with ACS,and Angina at rest. Pt treated with supplemental oxygen, aspirin, nitro, and pain control. Past History Past Medical History: arthritis, seizures, other (Bipolar disorder, SLE) Past Surgical History: total knee replacement, Other (left knee replacement, torn LT shoulder replacement.total hysterectomy,C-Spine effusion,L-4 herniated) Social history: , smoking. denies: alcohol abuse, prescription drug abuse, IV drug use Family history: CAD, hypertension Medications and Allergies Allergies Allergy/AdvReac Type Severity Reaction Status Date / Time divalproex sodium Allergy Itching Verified 03/02/16 17:13 [From Depakote] phenytoin sodium Allergy Itching Verified 03/02/16 17:13 [From Dilantin] phenytoin sodium extended Allergy Itching Verified 03/02/16 17:13 [From Dilantin] Tetracyclines Allergy Itching Verified 03/02/16 17:13 NSAIDS (Non-Steroidal AdvReac "KIDNEYS" Verified 03/02/16 17:13 Anti-Inflamma Home Medications Medication Instructions Recorded Confirmed Last Taken Type HYDROcodone/APAP 7.5-325 [[place] 1 each PO Q8HR PRN #12 tablet 03/03/16 02/09/17 02/05/17 Rx 7.5-325 mg TAB] Tiotropium [Spiriva] 18 mcg IH QDAY 03/03/16 02/09/17 02/05/17 History Amitriptyline [Elavil] 50 mg PO QHS 02/06/17 02/09/17 02/05/17 History AtorvaSTATin [Lipitor] 20 mg PO QHS 02/06/17 02/09/17 02/05/17 History Clonidine HCl [Kapvay] 0.1 mg PO BID 02/06/17 02/09/17 02/05/17 History Cyclobenzaprine [Flexeril] 10 mg PO TID PRN 02/06/17 02/09/17 02/05/17 History FLUoxetine HCL [Fluoxetine HCl] 80 mg PO QAM 02/06/17 02/09/17 02/05/17 History Fluticasone/Vilanterol [Breo 1 each IH DAILY 02/06/17 02/09/17 02/05/17 History Ellipta 100-25 Mcg INH] Gabapentin [Neurontin] 300 mg PO Q8HR 02/06/17 02/09/17 02/05/17 History Ipratropium/Albuterol Sulfate 1 ampul IH Q6HR 02/06/17 02/09/17 02/05/17 History [DUONEB *Not for PRN Use*] Ranitidine HCl [Acid [employer]] 150 mg PO BID 02/06/17 02/09/17 02/05/17 History levETIRAcetam [Keppra TAB] 1,000 mg PO BID 02/06/17 02/09/17 02/05/17 History Review of Systems Constitutional: no weight loss, no weight gain, no fever, no chills Ears, nose, mouth and throat: no ear pain, no ear discharge, no tinnitis, no decreased hearing, no nose pain Breasts: no change in shape, no swelling, no mass Cardiovascular: chest pain, shortness of breath, no orthopnea, no palpitations, no syncope, no lightheadedness, no dyspnea on exertion Respiratory: no cough, no cough with sputum, no excessive sputum, no hemoptysis Gastrointestinal: no abdominal pain, no nausea, no vomiting, no diarrhea, no constipation, no change in bowel habits Genitourinary Female: no dysmenorrhea, no pelvic pain, no flank pain, no menorrhagia, no dysuria Rectal: no pain, no incontinence, no bleeding Musculoskeletal: no neck stiffness, no neck pain, no shooting arm pain, no arm numbness/tingling, no low back pain, no shooting leg pain Integumentary: no rash, no pruritis, no redness, no sores, no wounds, no jaundice Neurological: no head injury, no transient paralysis, no paralysis, no weakness , no parathesias, no numbness, no tingling, no seizures Psychiatric: no anxiety, no memory loss, no change in sleep habits, no sleep disturbances, no insomnia, no hypersomnia, no change in appetite Endocrine: no cold intolerance, no heat intolerance, no polyphagia, no excessive thirst, no polydipsia, no polyuria, no nocturia, no excessive sweating Hematologic/Lymphatic: no easy bruising, no easy bleeding Allergic/Immunologic: no urticaria, no allergic rhinitis, no wheezing Exam - Constitutional Vitals: Temp Pulse Resp BP Pulse Ox 99.6 F 89 18 150/93 98 02/08/17 16:43 02/08/17 16:43 02/09/17 01:51 02/08/17 16:43 02/09/17 01:51 General appearance: Present: mild distress, obese - EENT Eyes: Present: PERRL ENT: hearing intact, clear oral mucosa - Neck Neck: Present: supple, normal ROM - Respiratory Respiratory effort: normal Respiratory: bilateral: CTA - Cardiovascular Heart Sounds: Present: S1 & S2. Absent: rub, click - Extremities Extremities: pulses symmetrical, No edema Peripheral Pulses: within normal limits - Abdominal General gastrointestinal: Present: soft, non-tender, non-distended, normal bowel sounds Female genitourinary: Present: normal - Integumentary Integumentary: Present: clear, warm, dry - Musculoskeletal Musculoskeletal: gait normal, strength equal bilaterally - Psychiatric Psychiatric: appropriate mood/affect, intact judgment & insight - Neurologic Neurologic: CNII-XII intact, moves all extremities Results - Labs CBC & Chem 7: 02/09/17 04:10 02/09/17 04:00 Assessment and Plan - Patient Problems (1) ACS (acute coronary syndrome) Current Visit: Yes Status: Acute Plan to address problem: Chest Pain protocol; Serial cardiac enzymes, admit to telemetry, serial ekg, cardiology consulted, echo, d dimer, stress test, pain control with morphine, oxygen, nitro tabs, aspirin, lipid panel (2) Seizure Current Visit: Yes Status: Acute Plan to address problem: resume antiepileptic therapy, neuro checks, (3) Nicotine dependence Current Visit: Yes Status: Acute Plan to address problem: pt counseled regarding smoking cessation, pt refused to pick quit date. (4) Lupus Current Visit: No Status: Chronic Plan to address problem: Stable, no exacerbation at this time. (5) DVT prophylaxis Current Visit: Yes Status: Acute
[2017-02-09] MEDS ORDERED: PROVENTIL IH PRN (03:53)
[2017-02-09] MEDS ORDERED: BABY ASPIRIN PO ONE (03:53)
[2017-02-09] MEDS ORDERED: NITROSTAT SL PRN (03:53)
[2017-02-09] MEDS ORDERED: MILK OF MAGNESIA PO PRN (03:53)
[2017-02-09] MEDS ORDERED: DULCOLAX PR PRN (03:53)
[2017-02-09] MEDS ORDERED: TYLENOL PO PRN (03:53)
[2017-02-09] MEDS ORDERED: SODIUM CHLORIDE FLUSH SYRINGE 10 ML IV PRN (03:53)
[2017-02-09 04:28] LABS: Hematocrit 36.4 % (30.3-42.9); Hemoglobin 12.1 gm/dl (10.1-14.3); Mean Corpuscular HGB Conc 33 % (30-34); Mean Corpuscular Hemoglobin 31 pg (28-32); Mean Corpuscular Volume 92 fl (79-97); Platelet Count 282 K/mm3 (140-440); Red Blood Count 3.96 M/mm3 (3.65-5.03); Red Cell Distribution Width 14.8 % (13.2-15.2); White Blood Count 8.8 K/mm3 (4.5-11.0)
[2017-02-09 04:34] LABS: Calcium 8.9 mg/dL (8.4-10.2); Chloride 107.8 mmol/L (98-107); Potassium 3.7 mmol/L (3.6-5.0)
[2017-02-09 05:28] LABS: Anisocytosis Few; Basophils % (Manual) 0 % (0.0-1.8); Blastocytes % (Manual) 0 %; Diff Status Complete
[2017-02-09] MEDS ORDERED: TYLENOL ONE (05:40)
[2017-02-09] MEDS ORDERED: NON-FORMULARY (Clonidine Hcl [Kapvay] 0.1 MG) PO SCH (10:00)
[2017-02-09] MEDS ORDERED: NON-FORMULARY (Levetiracetam [Keppra Tab] 1,000 MG) PO SCH (10:00)
[2017-02-09] MEDS ORDERED: NON-FORMULARY (Fluticasone/Vilanterol [Breo Ellipta 100-25 Mcg Inh] 1 EACH) IH SCH (10:00)
[2017-02-09] MEDS ORDERED: LEXISCAN IV ONE ×2 (10:01→10:30)
[2017-02-09] MEDS ORDERED: SPIRIVA IH SCH (11:00)
[2017-02-09] MEDS ORDERED: DUONEB *Not for PRN Use IH SCH (12:00)
--- NOTE | 2017-02-09 12:17 | Consultation ---
History of Present Illness Consult date: 02/09/17 Consult reason: chest pain History of present illness: Patient presented with chest pain. Her pain is intermittent and chronic. She has had this chest pain since she came back from [place] in 1981. Back in 09/2015 , she had a stress test showing a small fixed anterior defect. Back in 2012, she had a normal cath with Dr Young in [facility]. Her stress test today is showing a fixed anteroseptal wall defect and a mixed inferolateral wall defect. Past History Past Medical History: arthritis, seizures, other (Bipolar disorder, SLE) Past Surgical History: total knee replacement, Other (left knee replacement, torn LT shoulder replacement.total hysterectomy,C-Spine effusion,L-4 herniated) Social history: , smoking. denies: alcohol abuse, prescription drug abuse, IV drug use Family history: CAD, hypertension Medications and Allergies Allergies Allergy/AdvReac Type Severity Reaction Status Date / Time divalproex sodium Allergy Itching Verified 03/02/16 17:13 [From Depakote] phenytoin sodium Allergy Itching Verified 03/02/16 17:13 [From Dilantin] phenytoin sodium extended Allergy Itching Verified 03/02/16 17:13 [From Dilantin] Tetracyclines Allergy Itching Verified 03/02/16 17:13 NSAIDS (Non-Steroidal AdvReac "KIDNEYS" Verified 03/02/16 17:13 Anti-Inflamma Home Medications Medication Instructions Recorded Confirmed Last Taken Type HYDROcodone/APAP 7.5-325 [[place] 1 each PO Q8HR PRN #12 tablet 03/03/16 02/09/17 02/05/17 Rx 7.5-325 mg TAB] Tiotropium [Spiriva] 18 mcg IH QDAY 03/03/16 02/09/17 02/05/17 History Amitriptyline [Elavil] 50 mg PO QHS 02/06/17 02/09/17 02/05/17 History AtorvaSTATin [Lipitor] 20 mg PO QHS 02/06/17 02/09/17 02/05/17 History Clonidine HCl [Kapvay] 0.1 mg PO BID 02/06/17 02/09/17 02/05/17 History Cyclobenzaprine [Flexeril] 10 mg PO TID PRN 02/06/17 02/09/17 02/05/17 History FLUoxetine HCL [Fluoxetine HCl] 80 mg PO QAM 02/06/17 02/09/17 02/05/17 History Fluticasone/Vilanterol [Breo 1 each IH DAILY 02/06/17 02/09/17 02/05/17 History Ellipta 100-25 Mcg INH] Gabapentin [Neurontin] 300 mg PO Q8HR 02/06/17 02/09/17 02/05/17 History Ipratropium/Albuterol Sulfate 1 ampul IH Q6HR 02/06/17 02/09/17 02/05/17 History [DUONEB *Not for PRN Use*] Ranitidine HCl [Acid Clinical Recruiter] 150 mg PO BID 02/06/17 02/09/17 02/05/17 History levETIRAcetam [Keppra TAB] 1,000 mg PO BID 02/06/17 02/09/17 02/05/17 History Active Meds: Active Medications Acetaminophen (Tylenol) 650 mg PO Q4H PRN PRN Reason: Pain MILD(1-3)/Fever >100.5/SARAVIA Last Admin: 02/09/17 05:43 Dose: 650 mg Albuterol (Proventil) 2.5 mg IH Q4HRT PRN PRN Reason: Shortness Of Breath Albuterol/Ipratropium (Duoneb *Not For Prn Use*) 1 ampul IH Q6HR [facility] Amitriptyline HCl (Elavil) 50 mg PO QHS [facility] Atorvastatin Calcium (Lipitor) 20 mg PO QHS [facility] Bisacodyl (Dulcolax) 10 mg [place] QDAY PRN PRN Reason: Constipation unrelieved by [facility] Influenza Virus Vaccine Quadrival (Fluarix Quad [id number](36 Mos+) 0.5 ml IM .ONCE ONE Stop: 02/10/17 12:01 Levetiracetam (Keppra) 1,000 mg PO BID [facility] Magnesium Hydroxide (Milk Of Magnesia) 30 ml PO Q4H PRN PRN Reason: Constipation Miscellaneous Medication (Clonidine Hcl [Kapvay]) 0.1 mg PO BID [facility] Miscellaneous Medication (Fluticasone/Vilanterol [Breo Ellipta 100-25 Mcg Inh]) 1 each IH DAILY [facility] Morphine Sulfate (Morphine) 2 mg IV Q4H PRN PRN Reason: Pain, Moderate (4-6) Nitroglycerin (Nitrostat) 0.4 mg SL Q5M PRN PRN Reason: Chest Pain Ondansetron HCl (Zofran) 4 mg IV Q8H PRN PRN Reason: N/V unrelieved by Reglan Sodium Chloride (Sodium Chloride Flush Syringe 10 Ml) 10 ml IV PRN PRN PRN Reason: LINE FLUSH Tiotropium [place] (Spiriva) 1 puff IH QDAY [facility] Review of Systems All systems: negative Physical Examination Vital Signs Temp Pulse Resp BP Pulse Ox 99.6 F 89 18 150/93 100 02/08/17 16:43 02/08/17 16:43 02/08/17 16:43 02/08/17 16:43 02/08/17 16:43 General appearance: no acute distress HEENT: Positive: PERRL Neck: Positive: neck supple Cardiac: Positive: Reg Rate and Rhythm Lungs: Positive: Normal Exam Results 02/09/17 04:10 02/09/17 04:00 CBC 02/08/17 02/09/17 Range/Units 17:12 04:10 WBC 8.6 8.8 (4.5-11.0) K/mm3 RBC 4.44 3.96 (3.65-5.03) M/mm3 Hgb 13.3 12.1 (10.1-14.3) gm/dl Hct 40.6 36.4 (30.3-42.9) % Plt Count 312 282 (140-440) K/mm3 Lymph # 2.2 (1.2-5.4) K/mm3 [place] # 0.5 (0.0-0.8) K/mm3 Eos # 0.1 (0.0-0.4) K/mm3 Baso # 0.1 (0.0-0.1) K/mm3 Comprehensive Metabolic Panel 02/08/17 02/09/17 Range/Units 17:12 04:00 Sodium 144 144 (137-145) mmol/L Potassium 4.1 3.7 (3.6-5.0) mmol/L Chloride 105.3 107.8 H (98-107) mmol/L Carbon Dioxide 22 21 L (22-30) mmol/L BUN 12 10 (7-17) mg/dL Creatinine 1.1 1.0 (0.7-1.2) mg/dL Glucose 91 96 (65-100) mg/dL Calcium 9.1 8.9 (8.4-10.2) mg/dL EKG interpretations - Telemetry EKG Rhythm: Sinus Rhythm Assessment and Plan Chest Pain, chronic Abnormal MPI Chronic RBBB on ECG Normal LVEF Normal coronaries by [facility] 2012 Chronic pain syndrome Hyperlipidemia Hypertension Family history of ischemic heart disease Recommendations: Coronary angiography on sunday Discussed with patient and she is agreeable to proceed with [facility]
[2017-02-09] MEDS: CATAPRES PO SCH ×2 (12:38→22:49)
[2017-02-09] MEDS: ZOFRAN IV PRN (12:39)
[2017-02-09] MEDS: MORPHINE IV PRN ×3 (12:39→20:17)
[2017-02-09] MEDS: KEPPRA PO SCH ×2 (12:39→22:43)
[2017-02-09] MEDS: PROzac PO SCH (16:14)
--- NOTE | 2017-02-09 17:08 | Event Note ---
Date: 02/09/17 Seen and examined medical records reviewed Continue current management
[2017-02-09] MEDS: DUONEB *Not for PRN Use IH SCH (20:48)
[2017-02-09] MEDS: ELAVIL PO SCH (22:44)
[2017-02-09] MEDS: HABITROL TD SCH (22:44)
[2017-02-10] MEDS: DUONEB *Not for PRN Use IH SCH ×4 (02:20→20:01)
[2017-02-10] MEDS: MORPHINE IV PRN ×5 (04:21→23:41)
--- NOTE | 2017-02-10 09:41 | Progress Note ---
Assessment and Plan Assessment and plan: --Coronary artery disease; abnormal stress test ,heart catheterization on Sunday Anterior current cardiac medications, cardiology following --Seizure disorder; seizure precautions, continue antiepileptic medications --History of lupus; stable --Ongoing tobacco use; nicotine patch as needed, smoking cessation counseling done --Elevated D dimers; follow CT angiogram of the chest, rule out PE/DVT --DVT prophylaxis Lovenox --Obesity with BMI of 32.3; counseling done patient advised diet modification, exercise as tolerated and weight reduction Continue current management Plan of care discussed with the patient History Interval history: Patient seen and examined medical records reviewed Intermittent chest pain, abnormal stress test Cardiology scheduled heart catheterization on Sunday No nausea vomiting Vital signs stable Hospitalist Physical - Constitutional Vitals: Temp Pulse Resp BP Pulse Ox 98.1 F 57 L 20 87/44 95 02/10/17 05:32 02/10/17 05:33 02/10/17 05:32 02/10/17 05:32 02/10/17 05:33 General appearance: Present: no acute distress, well-nourished, obese - EENT Eyes: Present: PERRL, EOM intact - Neck Neck: Present: supple, normal ROM - Respiratory Respiratory effort: normal Respiratory: bilateral: diminished, negative: rales, rhonchi, wheezing - Cardiovascular Rhythm: regular Heart Sounds: Present: S1 & S2 - Extremities Extremities: no ischemia, No edema Peripheral Pulses: within normal limits - Abdominal General gastrointestinal: soft, non-tender, non-distended, normal bowel sounds - Integumentary Integumentary: Present: clear, warm - Psychiatric Psychiatric: appropriate mood/affect, cooperative - Neurologic Neurologic: CNII-XII intact, moves all extremities Results - Labs CBC & Chem 7: 02/09/17 04:10 02/09/17 04:00 Labs: Laboratory Last Values WBC 8.8 K/mm3 (4.5-11.0) 02/09/17 04:10 RBC 3.96 M/mm3 (3.65-5.03) 02/09/17 04:10 Hgb 12.1 gm/dl (10.1-14.3) 02/09/17 04:10 Hct 36.4 % (30.3-42.9) 02/09/17 04:10 MCV 92 fl (79-97) 02/09/17 04:10 MCH 31 pg (28-32) 02/09/17 04:10 MCHC 33 % (30-34) 02/09/17 04:10 RDW 14.8 % (13.2-15.2) 02/09/17 04:10 Plt Count 282 K/mm3 (140-440) 02/09/17 04:10 Lymph % (Auto) 25.7 % (13.4-35.0) 02/08/17 17:12 [place] % (Auto) 6.3 % (0.0-7.3) 02/08/17 17:12 Eos % (Auto) 1.0 % (0.0-4.3) 02/08/17 17:12 Baso % (Auto) 0.8 % (0.0-1.8) 02/08/17 17:12 Lymph # 2.2 K/mm3 (1.2-5.4) 02/08/17 17:12 [place] # 0.5 K/mm3 (0.0-0.8) 02/08/17 17:12 Eos # 0.1 K/mm3 (0.0-0.4) 02/08/17 17:12 Baso # 0.1 K/mm3 (0.0-0.1) 02/08/17 17:12 Add Manual Diff Complete 02/09/17 04:10 Total Counted 100 02/09/17 04:10 Seg Neutrophils % 66.2 % (40.0-70.0) 02/08/17 17:12 Seg Neuts % (Manual) 70.0 % (40.0-70.0) 02/09/17 04:10 Band Neutrophils % 0 % 02/09/17 04:10 Lymphocytes % (Manual) 25.0 % (13.4-35.0) 02/09/17 04:10 Reactive Lymphs % (Man) 0 % 02/09/17 04:10 Monocytes % (Manual) 4.0 % (0.0-7.3) 02/09/17 04:10 Eosinophils % (Manual) 1.0 % (0.0-4.3) 02/09/17 04:10 Basophils % (Manual) 0 % (0.0-1.8) 02/09/17 04:10 Metamyelocytes % 0 % 02/09/17 04:10 Myelocytes % 0 % 02/09/17 04:10 Promyelocytes % 0 % 02/09/17 04:10 Blast Cells % 0 % 02/09/17 04:10 Nucleated RBC % Not Reportable 02/09/17 04:10 Seg Neutrophils # 5.7 K/mm3 (1.8-7.7) 02/08/17 17:12 Seg Neutrophils # Man 6.2 K/mm3 (1.8-7.7) 02/09/17 04:10 Band Neutrophils # 0.0 K/mm3 02/09/17 04:10 Lymphocytes # (Manual) 2.2 K/mm3 (1.2-5.4) 02/09/17 04:10 Abs React Lymphs (Man) 0.0 K/mm3 02/09/17 04:10 Monocytes # (Manual) 0.4 K/mm3 (0.0-0.8) 02/09/17 04:10 Eosinophils # (Manual) 0.1 K/mm3 (0.0-0.4) 02/09/17 04:10 Basophils # (Manual) 0.0 K/mm3 (0.0-0.1) 02/09/17 04:10 Metamyelocytes # 0.0 K/mm3 02/09/17 04:10 Myelocytes # 0.0 K/mm3 02/09/17 04:10 Promyelocytes # 0.0 K/mm3 02/09/17 04:10 Blast Cells # 0.0 K/mm3 02/09/17 04:10 WBC Morphology Not Reportable 02/09/17 04:10 Hypersegmented Neuts Not Reportable 02/09/17 04:10 Hyposegmented Neuts Not Reportable 02/09/17 04:10 Hypogranular Neuts Not Reportable 02/09/17 04:10 Smudge Cells Not Reportable 02/09/17 04:10 Toxic Granulation Not Reportable 02/09/17 04:10 Toxic Vacuolation Not Reportable 02/09/17 04:10 Dohle Bodies Not Reportable 02/09/17 04:10 Pelger-Huet Anomaly Not Reportable 02/09/17 04:10 Yvonne Rods Not Reportable 02/09/17 04:10 Platelet Estimate Appears normal 02/09/17 04:10 Clumped Platelets Not Reportable 02/09/17 04:10 Plt Clumps, EDTA Not Reportable 02/09/17 04:10 Large Platelets Not Reportable 02/09/17 04:10 Giant Platelets Not Reportable 02/09/17 04:10 Platelet Satelliting Not Reportable 02/09/17 04:10 Plt Morphology Comment Not Reportable 02/09/17 04:10 RBC Morphology Not Reportable 02/09/17 04:10 Dimorphic RBCs Not Reportable 02/09/17 04:10 Polychromasia Not Reportable 02/09/17 04:10 Hypochromasia Not Reportable 02/09/17 04:10 Poikilocytosis Not Reportable 02/09/17 04:10 Anisocytosis Few 02/09/17 04:10 Microcytosis Not Reportable 02/09/17 04:10 Macrocytosis Not Reportable 02/09/17 04:10 Spherocytes Not Reportable 02/09/17 04:10 Pappenheimer Bodies Not Reportable 02/09/17 04:10 Sickle Cells Not Reportable 02/09/17 04:10 Target Cells Not Reportable 02/09/17 04:10 Tear Drop Cells Not Reportable 02/09/17 04:10 Ovalocytes Not Reportable 02/09/17 04:10 Helmet Cells Not Reportable 02/09/17 04:10 Narvaez-[place] Bodies Not Reportable 02/09/17 04:10 [place] Rings Not Reportable 02/09/17 04:10 Sonja Cells Not Reportable 02/09/17 04:10 Bite Cells Not Reportable 02/09/17 04:10 Crenated Cell Not Reportable 02/09/17 04:10 Elliptocytes Not Reportable 02/09/17 04:10 Acanthocytes (Spur) Not Reportable 02/09/17 04:10 Rouleaux Not Reportable 02/09/17 04:10 Hemoglobin C Crystals Not Reportable 02/09/17 04:10 Schistocytes Not Reportable 02/09/17 04:10 Malaria parasites Not Reportable 02/09/17 04:10 Allan Bodies Not Reportable 02/09/17 04:10 Hem Pathologist Commnt No 02/09/17 04:10 D-Dimer 320.50 ng/mlDDU (0-234) H 02/09/17 04:10 Sodium 144 mmol/L (137-145) 02/09/17 04:00 Potassium 3.7 mmol/L (3.6-5.0) 02/09/17 04:00 Chloride 107.8 mmol/L (98-107) H 02/09/17 04:00 Carbon Dioxide 21 mmol/L (22-30) L 02/09/17 04:00 Anion Gap 19 mmol/L 02/09/17 04:00 BUN 10 mg/dL (7-17) 02/09/17 04:00 Creatinine 1.0 mg/dL (0.7-1.2) 02/09/17 04:00 Estimated GFR 58 ml/min 02/09/17 04:00 BUN/Creatinine Ratio 10 % 02/09/17 04:00 Glucose 96 mg/dL (65-100) 02/09/17 04:00 Calcium 8.9 mg/dL (8.4-10.2) 02/09/17 04:00 Troponin T < 0.010 ng/mL (0.00-0.029) 02/09/17 12:58
--- NOTE | 2017-02-10 10:11 | Progress Note ---
Assessment and Plan 1. Atypical chest pain. Abnormal nuclear cardiac imaging tests 2. Essential hypertension 3. Hyperlipidemia 4. Chronic pain syndrome Plan. Patient is scheduled for [facility] on Sunday Subjective Date of service: 02/10/17 Principal diagnosis: Chest pains Interval history: No specific cardiac complains. Objective Vital Signs Temp Pulse Pulse Resp Resp BP BP 02/10/17 05:33 57 L 02/10/17 05:32 98.1 F 56 L 20 87/44 02/10/17 02:38 63 18 02/10/17 02:22 58 L 18 02/10/17 02:00 59 L 02/10/17 01:59 98.3 F 58 L 20 95/53 02/09/17 22:00 02/09/17 21:09 97.4 F L 18 02/09/17 21:06 20 02/09/17 20:53 59 L 104/55 02/09/17 20:48 18 02/09/17 20:00 65 02/09/17 17:51 97.9 F 20 L 20 110/64 02/09/17 17:28 97.9 F 57 L 20 110/64 02/09/17 12:16 98.2 F 60 20 122/63 02/09/17 10:24 83 129/71 02/09/17 10:23 82 119/77 02/09/17 10:22 96 H 131/83 02/09/17 10:21 96 H 144/91 02/09/17 10:20 93 H 147/89 02/09/17 10:19 92 H 135/62 02/09/17 10:05 59 L 113/80 Pulse Ox 02/10/17 05:33 95 02/10/17 05:32 96 02/10/17 02:38 02/10/17 02:22 02/10/17 02:00 94 02/10/17 01:59 95 02/09/17 22:00 98 02/09/17 21:09 02/09/17 21:06 02/09/17 20:53 94 02/09/17 20:48 02/09/17 20:00 02/09/17 17:51 02/09/17 17:28 96 02/09/17 12:16 96 02/09/17 10:24 02/09/17 10:23 02/09/17 10:22 02/09/17 10:21 02/09/17 10:20 02/09/17 10:19 02/09/17 10:05 - Physical Examination General: Appears Well, No Apparent Distress, Other (obese) HEENT: Positive: PERRL, Normocephaly, Mucus Membranes Moist Neck: Positive: neck supple. Negative: JVD/HJR Cardiac: Positive: Regular Rate, S1/S2 Lungs: Positive: clear to auscultation, No Wheeze, Rales, Rhonchi Neuro: Positive: Grossly Intact Abdomen: Positive: Unremarkable, Active Bowel Sounds Extremities: Absent: edema - Telemetry EKG Rhythm: Sinus Rhythm
[2017-02-10] MEDS: PROzac PO SCH (11:44)
[2017-02-10] MEDS: HABITROL TD SCH (11:44)
[2017-02-10] MEDS: KEPPRA PO SCH ×2 (11:45→22:33)
[2017-02-10] MEDS: CATAPRES PO SCH ×2 (11:45→22:32)
[2017-02-10] MEDS ORDERED: Fluarix Quad 2017-2018(36 MOS+ IM ONE (12:00)
[2017-02-10] MEDS ORDERED: ALUM-MAG HYDROX-SIMETH 200-200-20MG/5ML PO ONE (14:00)
[2017-02-10] MEDS: PEPCID PO SCH ×2 (15:00→22:31)
[2017-02-10] MEDS: ELAVIL PO SCH (22:32)
[2017-02-11] MEDS: MORPHINE IV PRN ×5 (04:02→23:44)
[2017-02-11] MEDS: DUONEB *Not for PRN Use IH SCH ×4 (05:52→20:33)
[2017-02-11] MEDS: PEPCID PO SCH ×2 (09:27→22:02)
[2017-02-11] MEDS: PROzac PO SCH (09:27)
[2017-02-11] MEDS: KEPPRA PO SCH ×2 (09:27→22:01)
[2017-02-11] MEDS: HABITROL TD SCH (09:28)
[2017-02-11] MEDS: CATAPRES PO SCH ×2 (09:29→22:02)
--- NOTE | 2017-02-11 11:16 | Progress Note ---
Assessment and Plan 1. Atypical chest pain. Abnormal nuclear cardiac imaging tests 2. Essential hypertension 3. Hyperlipidemia 4. Chronic pain syndrome Plan. Patient is scheduled for [facility] on Sunday Subjective Date of service: 02/11/17 Principal diagnosis: Chest pains Interval history: No specific cardiac complains. Objective Vital Signs Temp Pulse Pulse Resp Resp BP BP 02/11/17 09:28 02/11/17 08:29 65 02/11/17 08:04 98.5 F 65 20 02/11/17 07:45 66 18 02/11/17 07:35 65 18 02/11/17 05:43 58 L 02/11/17 04:17 98.2 F 58 L 16 107/58 02/11/17 00:41 98.6 F 79 16 101/51 02/10/17 22:32 64 101/68 02/10/17 19:59 02/10/17 19:34 98.5 F 64 16 101/68 02/10/17 17:04 98.1 F 67 18 96/51 02/10/17 13:46 71 20 02/10/17 13:36 65 18 02/10/17 13:07 97.9 F 73 18 83/43 BP Pulse Ox 02/11/17 09:28 98 02/11/17 08:29 02/11/17 08:04 99/54 96 02/11/17 07:45 02/11/17 07:35 02/11/17 05:43 02/11/17 04:17 96 02/11/17 00:41 94 02/10/17 22:32 02/10/17 19:59 97 02/10/17 19:34 97 02/10/17 17:04 98 02/10/17 13:46 02/10/17 13:36 02/10/17 13:07 94 - Physical Examination General: Appears Well, No Apparent Distress, Other (obese) HEENT: Positive: PERRL, Normocephaly, Mucus Membranes Moist Neck: Positive: neck supple. Negative: JVD/HJR Cardiac: Positive: Regular Rate, S1/S2, PMI, Laterally Displaced Lungs: Positive: clear to auscultation, No Wheeze, Rales, Rhonchi Neuro: Positive: Grossly Intact Abdomen: Positive: Unremarkable, Active Bowel Sounds Extremities: Absent: edema - Telemetry EKG Rhythm: Sinus Rhythm
--- NOTE | 2017-02-11 14:39 | Progress Note ---
Assessment and Plan - Patient Problems (1) ACS (acute coronary syndrome) Current Visit: Yes Status: Acute Plan to address problem: 2 coronary syndrome chest pain. Patient have cardiac catheterization on Sunday. (2) Chest pain Current Visit: Yes Status: Acute Qualifiers: Chest pain type: unspecified Qualified Code(s): R07.9 - Chest pain, unspecified Plan to address problem: Negative isoenzymes cardiac chest pain on catheterization on Sunday. (3) Nicotine dependence Current Visit: Yes Status: Acute Plan to address problem: Smoking cessation. Smoking counseling. (4) Lupus Current Visit: No Status: Chronic Plan to address problem: Chronic pain syndrome. We need to follow with pain management on outpatient. History Interval history: Patient now appears to be chest pain-free. Patient talking about shoulder injury old back injury appears to be showing pain seeking behavior to me. Hospitalist Physical - Constitutional Vitals: Temp Pulse Resp BP Pulse Ox 98.5 F 65 20 99/54 98 02/11/17 08:04 02/11/17 08:29 02/11/17 08:04 02/11/17 08:04 02/11/17 09:28 General appearance: Present: no acute distress, well-nourished, obese - EENT Eyes: Present: PERRL, EOM intact ENT: hearing intact, clear oral mucosa, dentition normal - Neck Neck: Present: supple, normal ROM - Respiratory Respiratory: bilateral: CTA - Extremities Extremities: no ischemia, pulses intact, No edema, normal temperature Peripheral Pulses: within normal limits - Abdominal General gastrointestinal: soft, non-tender, distended - Psychiatric Psychiatric: appropriate mood/affect - Neurologic Neurologic: CNII-XII intact Results - Labs CBC & Chem 7: 02/09/17 04:10 02/09/17 04:00 Labs: Laboratory Last Values WBC 8.8 K/mm3 (4.5-11.0) 02/09/17 04:10 RBC 3.96 M/mm3 (3.65-5.03) 02/09/17 04:10 Hgb 12.1 gm/dl (10.1-14.3) 02/09/17 04:10 Hct 36.4 % (30.3-42.9) 02/09/17 04:10 MCV 92 fl (79-97) 02/09/17 04:10 MCH 31 pg (28-32) 02/09/17 04:10 MCHC 33 % (30-34) 02/09/17 04:10 RDW 14.8 % (13.2-15.2) 02/09/17 04:10 Plt Count 282 K/mm3 (140-440) 02/09/17 04:10 Lymph % (Auto) 25.7 % (13.4-35.0) 02/08/17 17:12 [place] % (Auto) 6.3 % (0.0-7.3) 02/08/17 17:12 Eos % (Auto) 1.0 % (0.0-4.3) 02/08/17 17:12 Baso % (Auto) 0.8 % (0.0-1.8) 02/08/17 17:12 Lymph # 2.2 K/mm3 (1.2-5.4) 02/08/17 17:12 [place] # 0.5 K/mm3 (0.0-0.8) 02/08/17 17:12 Eos # 0.1 K/mm3 (0.0-0.4) 02/08/17 17:12 Baso # 0.1 K/mm3 (0.0-0.1) 02/08/17 17:12 Add Manual Diff Complete 02/09/17 04:10 Total Counted 100 02/09/17 04:10 Seg Neutrophils % 66.2 % (40.0-70.0) 02/08/17 17:12 Seg Neuts % (Manual) 70.0 % (40.0-70.0) 02/09/17 04:10 Band Neutrophils % 0 % 02/09/17 04:10 Lymphocytes % (Manual) 25.0 % (13.4-35.0) 02/09/17 04:10 Reactive Lymphs % (Man) 0 % 02/09/17 04:10 Monocytes % (Manual) 4.0 % (0.0-7.3) 02/09/17 04:10 Eosinophils % (Manual) 1.0 % (0.0-4.3) 02/09/17 04:10 Basophils % (Manual) 0 % (0.0-1.8) 02/09/17 04:10 Metamyelocytes % 0 % 02/09/17 04:10 Myelocytes % 0 % 02/09/17 04:10 Promyelocytes % 0 % 02/09/17 04:10 Blast Cells % 0 % 02/09/17 04:10 Nucleated RBC % Not Reportable 02/09/17 04:10 Seg Neutrophils # 5.7 K/mm3 (1.8-7.7) 02/08/17 17:12 Seg Neutrophils # Man 6.2 K/mm3 (1.8-7.7) 02/09/17 04:10 Band Neutrophils # 0.0 K/mm3 02/09/17 04:10 Lymphocytes # (Manual) 2.2 K/mm3 (1.2-5.4) 02/09/17 04:10 Abs React Lymphs (Man) 0.0 K/mm3 02/09/17 04:10 Monocytes # (Manual) 0.4 K/mm3 (0.0-0.8) 02/09/17 04:10 Eosinophils # (Manual) 0.1 K/mm3 (0.0-0.4) 02/09/17 04:10 Basophils # (Manual) 0.0 K/mm3 (0.0-0.1) 02/09/17 04:10 Metamyelocytes # 0.0 K/mm3 02/09/17 04:10 Myelocytes # 0.0 K/mm3 02/09/17 04:10 Promyelocytes # 0.0 K/mm3 02/09/17 04:10 Blast Cells # 0.0 K/mm3 02/09/17 04:10 WBC Morphology Not Reportable 02/09/17 04:10 Hypersegmented Neuts Not Reportable 02/09/17 04:10 Hyposegmented Neuts Not Reportable 02/09/17 04:10 Hypogranular Neuts Not Reportable 02/09/17 04:10 Smudge Cells Not Reportable 02/09/17 04:10 Toxic Granulation Not Reportable 02/09/17 04:10 Toxic Vacuolation Not Reportable 02/09/17 04:10 Dohle Bodies Not Reportable 02/09/17 04:10 Pelger-Huet Anomaly Not Reportable 02/09/17 04:10 Yvonne Rods Not Reportable 02/09/17 04:10 Platelet Estimate Appears normal 02/09/17 04:10 Clumped Platelets Not Reportable 02/09/17 04:10 Plt Clumps, EDTA Not Reportable 02/09/17 04:10 Large Platelets Not Reportable 02/09/17 04:10 Giant Platelets Not Reportable 02/09/17 04:10 Platelet Satelliting Not Reportable 02/09/17 04:10 Plt Morphology Comment Not Reportable 02/09/17 04:10 RBC Morphology Not Reportable 02/09/17 04:10 Dimorphic RBCs Not Reportable 02/09/17 04:10 Polychromasia Not Reportable 02/09/17 04:10 Hypochromasia Not Reportable 02/09/17 04:10 Poikilocytosis Not Reportable 02/09/17 04:10 Anisocytosis Few 02/09/17 04:10 Microcytosis Not Reportable 02/09/17 04:10 Macrocytosis Not Reportable 02/09/17 04:10 Spherocytes Not Reportable 02/09/17 04:10 Pappenheimer Bodies Not Reportable 02/09/17 04:10 Sickle Cells Not Reportable 02/09/17 04:10 Target Cells Not Reportable 02/09/17 04:10 Tear Drop Cells Not Reportable 02/09/17 04:10 Ovalocytes Not Reportable 02/09/17 04:10 Helmet Cells Not Reportable 02/09/17 04:10 Narvaez-[place] Bodies Not Reportable 02/09/17 04:10 [place] Rings Not Reportable 02/09/17 04:10 Sonja Cells Not Reportable 02/09/17 04:10 Bite Cells Not Reportable 02/09/17 04:10 Crenated Cell Not Reportable 02/09/17 04:10 Elliptocytes Not Reportable 02/09/17 04:10 Acanthocytes (Spur) Not Reportable 02/09/17 04:10 Rouleaux Not Reportable 02/09/17 04:10 Hemoglobin C Crystals Not Reportable 02/09/17 04:10 Schistocytes Not Reportable 02/09/17 04:10 Malaria parasites Not Reportable 02/09/17 04:10 Allan Bodies Not Reportable 02/09/17 04:10 Hem Pathologist Commnt No 02/09/17 04:10 D-Dimer 320.50 ng/mlDDU (0-234) H 02/09/17 04:10 Sodium 144 mmol/L (137-145) 02/09/17 04:00 Potassium 3.7 mmol/L (3.6-5.0) 02/09/17 04:00 Chloride 107.8 mmol/L (98-107) H 02/09/17 04:00 Carbon Dioxide 21 mmol/L (22-30) L 02/09/17 04:00 Anion Gap 19 mmol/L 02/09/17 04:00 BUN 10 mg/dL (7-17) 02/09/17 04:00 Creatinine 1.0 mg/dL (0.7-1.2) 02/09/17 04:00 Estimated GFR 58 ml/min 02/09/17 04:00 BUN/Creatinine Ratio 10 % 02/09/17 04:00 Glucose 96 mg/dL (65-100) 02/09/17 04:00 Calcium 8.9 mg/dL (8.4-10.2) 02/09/17 04:00 Troponin T < 0.010 ng/mL (0.00-0.029) 02/09/17 12:58
[2017-02-11] MEDS: ELAVIL PO SCH (22:01)
[2017-02-12] MEDS: MORPHINE IV PRN ×3 (04:41→13:28)
[2017-02-12 06:07] LABS: Hematocrit 37.1 % (30.3-42.9); Mean Corpuscular HGB Conc 33 % (30-34); Mean Corpuscular Hemoglobin 30 pg (28-32); Mean Corpuscular Volume 92 fl (79-97); Platelet Count 266 K/mm3 (140-440); Red Blood Count 4.02 M/mm3 (3.65-5.03); Red Cell Distribution Width 14.7 % (13.2-15.2); White Blood Count 6.7 K/mm3 (4.5-11.0)
[2017-02-12 06:27] LABS: INR 0.94 (0.87-1.13)
[2017-02-12 06:48] LABS: Potassium 4.6 mmol/L (3.6-5.0)
--- NOTE | 2017-02-12 07:32 | Vascular Lab Report ---
LOWER EXTREMITY VENOUS DUPLEX: REASON FOR EXAM: Elevated D. dimer/pain. COMMENTS ON THE RIGHT: All veins visualized are freely compressible without evidence of internal echogenicity. Flow is spontaneous and phasic throughout. COMMENTS ON THE LEFT: All veins visualized are freely compressible without evidence of internal echogenicity. Flow is spontaneous and phasic throughout. IMPRESSION: No evidence of acute or chronic deep venous thrombosis in either lower extremity.
[2017-02-12] MEDS: DUONEB *Not for PRN Use IH SCH ×2 (08:40→15:35)
[2017-02-12] MEDS: ZOFRAN IV PRN (09:10)
[2017-02-12] MEDS: CATAPRES PO SCH (10:00)
[2017-02-12] MEDS: NACL 0.9% 500 ML 500 ML IV SCH ×2 (10:41→12:08)
[2017-02-12] MEDS ORDERED: CALAN ONE (11:53)
[2017-02-12] MEDS ORDERED: HEPARIN 10,000 UNITS/10 ML ONE (11:53)
[2017-02-12] MEDS ORDERED: HEPARIN/NS 5000 UNIT/500ML(CATH LAB) 1,000 ML IR ONE (11:53)
[2017-02-12] MEDS ORDERED: NITROGLYCERIN SYRINGE 3 ML ONE (11:54)
[2017-02-12] MEDS: SUBLIMAZE ONE ×3 (12:06→12:21)
[2017-02-12] MEDS: VERSED ONE ×2 (12:06→12:13)
[2017-02-12] MEDS: XYLOCAINE 2% INFILTRATI ONE ×3 (12:07→12:19)
--- NOTE | 2017-02-12 12:42 | Event Note ---
Date: 02/12/17 Cardiac cath completed, no complications. Findings: No signif CAD. EF 40-45%. OK for cardiac discharge, stop smoking advised.
[2017-02-12] MEDS ORDERED: NACL 0.9% 1000 ML 1,000 ML IV SCH (13:00)
[2017-02-12 13:10] VITALS: BP 99/54
--- NOTE | 2017-02-12 13:17 | Cardiac Catherization Report ---
REASON FOR PROCEDURE: Chest pain. PROCEDURE: Initial attempt at cannulating the right radial artery was unsuccessful, we successfully entered and cannulated the right femoral artery using Seldinger technique followed by placement of a 6-Uzbek sheath. Selective left and right coronary angiography was then performed using #3.5 left Vikki, and #4 right Vikki catheter. The pigtail catheter was used for left ventricular angiography. Catheters were removed, sheath removed, and hemostasis achieved using manual compression. The patient was returned to the post-procedure unit in stable condition. There were no complications. FINDINGS: HEMODYNAMICS: Left ventricular end-diastolic pressure was 22, following coronary angiography. Ascending aortic pressure was 121/72. There was no significant pressure gradient on pullback across the aortic valve. CORONARY ANGIOGRAPHY: The left main coronary artery was free of significant disease. The proximal and mid LAD was moderately ectatic. This ectatic segment was notable for [id number] coronary calcification and diffuse mild atherosclerosis. Otherwise, the remainder of the LAD system was angiographically normal. A medium sized mid diagonal branch contained moderate ostial narrowing, with up to 50% stenosis. The circumflex artery and its obtuse marginal branches were free of significant disease. The right coronary artery was dominant and angiographically normal. The left ventricle appeared very mildly dilated. There was mild left ventricular systolic dysfunction, ejection fraction of 40% to 45%. CONCLUSION: 1. Mild branch vessel narrowing of the left anterior descending and mild atherosclerosis as described; otherwise, essentially normal coronary arteries. 2. Mild left ventricular systolic dysfunction, ejection fraction of 40% to 45%, representing a mild nonischemic cardiomyopathy. RECOMMENDATION: Risk factor modification and medical therapy. JOB# [id number] CA/NTS
[2017-02-12] MEDS: KEPPRA PO SCH (14:25)
[2017-02-12] MEDS: HABITROL TD SCH (14:25)
[2017-02-12] MEDS: PROzac PO SCH (14:25)
[2017-02-12] MEDS: PEPCID PO SCH (14:26)
--- NOTE | 2017-02-12 14:28 | Discharge Summary ---
Providers - Providers Date of Admission: 02/09/17 03:53 Date of discharge: 02/12/17 Attending physician: ADALBERTO DIEGO 02/09/17 Consult to Cardiac Rehabilitation [CONS] Routine Reason For Exam: Phase I 02/09/17 03:53 Consult to Cardiology [CONS] Routine Consulting Provider: ERASTO GONSALES Reason For Exam: acs 02/12/17 12:39 Consult to Cardiac Rehabilitation [CONS] Routine Reason For Exam: Cardiac Rehab Evaluation Primary care physician: MEDICAL ECONOMICS CONSULTANT Hospitalization Condition: Good Hospital course: Recent presented with atypical chest pain had a diagnosis of lupus and ruled out pericarditis. Since she had high risk patient required cardiac catheterization. Cardiac catheterization was negative no significant coronary disease ejection fraction 45-55%. Stable to go home the discharge has follow- up with Dr. Ware cardiology. Disposition: TO HOME OR SELFCARE - Discharge Diagnoses (1) ACS (acute coronary syndrome) Status: Resolved (2) Chest pain Status: Resolved Qualifiers: Chest pain type: unspecified Qualified Code(s): R07.9 - Chest pain, unspecified (3) Nicotine dependence Status: Acute Qualifiers: Nicotine product type: cigarettes Comment: Smoking cessation. Patient not willing (4) Lupus Status: Chronic Comment: Follow-up primary care Core Measure Documentation - Palliative Care Palliative Care/ Comfort Measures: Not Applicable - Core Measures Any of the following diagnoses?: none Exam - Constitutional Vitals: Temp Pulse Resp BP Pulse Ox 98.4 F 66 20 99/54 96 02/12/17 08:44 02/12/17 08:44 02/12/17 13:28 02/12/17 13:03 02/12/17 08:44 General appearance: Present: no acute distress, well-nourished - EENT Eyes: Present: PERRL ENT: hearing intact, clear oral mucosa - Neck Neck: Present: supple, normal ROM - Respiratory Respiratory effort: normal Respiratory: bilateral: CTA - Cardiovascular Heart Sounds: Present: S1 & S2. Absent: rub, click - Extremities Extremities: pulses symmetrical, No edema Peripheral Pulses: within normal limits - Abdominal General gastrointestinal: Present: soft, non-tender, non-distended, normal bowel sounds Female genitourinary: Present: normal - Integumentary Integumentary: Present: clear, warm, dry - Musculoskeletal Musculoskeletal: gait normal, strength equal bilaterally - Psychiatric Psychiatric: appropriate mood/affect, intact judgment & insight - Neurologic Neurologic: CNII-XII intact, moves all extremities Plan Activity: no restrictions Weight Bearing Status: Full Weight Bearing Diet: low cholesterol Follow up with: PRIMARY CARE, [Primary Care Provider] - 3-5 Days Prescriptions: cloNIDine [Catapres] 0.1 mg PO BID #30 tablet Cyclobenzaprine [Flexeril 10 MG TAB] 10 mg PO TID PRN #30 tablet PRN Reason: Muscle Spasm Famotidine [Pepcid] 20 mg PO BID #60 tablet FLUoxetine HCL [Fluoxetine HCl] 80 mg PO QAM #20 capsule Gabapentin [Neurontin] 300 mg PO Q8HR #60 capsule HYDROcodone/APAP 7.5-325 [[place] 7.5-325 mg TAB] 1 each PO Q8HR PRN #12 tablet PRN Reason: Pain levETIRAcetam [Keppra TAB] 1,000 mg PO BID #60 tablet Nicotine [Habitrol] 14 mg TD QDAY #14 patch
[2017-02-12] MEDS ORDERED: FLUSH HEPARIN IV ONE (16:21)
--- NOTE | 2017-02-17 03:33 | Treadmill Report ---
INDICATION: Chest pain. FINDINGS: There is evidence of a small mildly reversible apical and mid inferior wall defect concerning for ischemia. There is also a small mildly reversible and fixed anteroseptal wall defect. The left ventricular ejection fraction is normal with an ejection fraction measured at 62%. Normal wall motion and wall thickening is noted on gated imaging. CONCLUSION: 1. Small mildly reversible inferior wall defect as well as a small mixed, fixed and reversible anterior septal defect. 2. Normal left ventricular size and wall motion. 3. Clinical correlation is recommended. JOB# [id number] JOSE GUADALUPE/KAYA
== END 2017-02-12 17:05 | disposition home or self-care (01) | DRG 287 ==
LOC: ED 15:20 → 4A 02-09 03:53
PROVIDERS: ADMIT Internal Medicine; ATTEND Internal Medicine
PROC: 3E0234Z Introduction of Serum, Toxoid and Vaccine into Muscle, Percutaneous Approach (ICD-10-PCS; 2017-02-10)
PROC: 4A023N7 Measurement of Cardiac Sampling and Pressure, Left Heart, Percutaneous Approach (ICD-10-PCS; principal; 2017-02-12)
PROC: B2111ZZ Fluoroscopy of Multiple Coronary Arteries using Low Osmolar Contrast (ICD-10-PCS; 2017-02-12)
PROC: B2151ZZ Fluoroscopy of Left Heart using Low Osmolar Contrast (ICD-10-PCS; 2017-02-12)
DX: I24.9 Acute ischemic heart disease, unspecified (principal); I42.9 Cardiomyopathy, unspecified; F17.200 Nicotine dependence, unspecified, uncomplicated; E66.9 Obesity, unspecified; G40.909 Epilepsy, unspecified, not intractable, without status epilepticus; K21.9 Gastro-esophageal reflux disease without esophagitis; M06.9 Rheumatoid arthritis, unspecified; Z96.652 Presence of left artificial knee joint; Z96.612 Presence of left artificial shoulder joint; G89.4 Chronic pain syndrome; E78.5 Hyperlipidemia, unspecified; M32.9 Systemic lupus erythematosus, unspecified; F31.9 Bipolar disorder, unspecified; J44.9 Chronic obstructive pulmonary disease, unspecified; Z23 Encounter for immunization; Z79.899 Other long term (current) drug therapy; Z88.6 Allergy status to analgesic agent; Z88.8 Allergy status to other drugs, medicaments and biological substances; Z90.49 Acquired absence of other specified parts of digestive tract; Z90.710 Acquired absence of both cervix and uterus; Z68.33 Body mass index [BMI] 33.0-33.9, adult; Z82.49 Family history of ischemic heart disease and other diseases of the circulatory system; Z71.6 Tobacco abuse counseling; Z71.3 Dietary counseling and surveillance
CPT/HCPCS: 36415; 78452; 80048; 84484; 85007; 85025; 85027; 85379; 85610; 90686; 93005; 93010; 93017; 93306; 93458; 93970; 94640; 94760; 96374; 99406; A9270-GY; A9502; C1894; J1642; J1644; J2250; J2270; J2405; J2785; J3010; J7040; Q9967

== ENCOUNTER 2017-02-22 18:44 | Emergency (ER) | payer MEDICARE ==
[2017-02-22] MEDS ORDERED: ASPIRIN PO ONE (21:09)
--- NOTE | 2017-02-22 21:13 | Emergency Department Report ---
Chief Complaint: Chest Pain Stated Complaint: CHEST PAIN Time Seen by Provider: 02/22/17 20:59 - HPI History of Present Illness: Patient is a 56-year-old female who has multiple past medical problems who is presenting with chest pain. Patient has shortness of breath as well. Patient states the pain has been present since she left the hospital. Patient was recently in the hospital for cardiac cath and echo. Patient states the pain has not gone away. Patient states the pain is worse today. - ROS Review of Systems: Review of systems is negative except for those ounce in HPI - Exam Vital Signs: Vital Signs 02/22/17 18:57 Temperature 99 F Pulse Rate 88 Respiratory 18 Rate Blood Pressure 145/77 O2 Sat by Pulse 100 Oximetry Physical Exam: Focused physical exam patient has center chest tenderness as well as epigastric tenderness. Patient lungs are clear to auscultation heart S1-S2 no murmurs gallops or rubs patient is in mild distress secondary to pain. MSE screening note: Focused history and physical exam performed. Due to findings the following was ordered: Chest pain workup as well as lipase and ordered and patient will be moved to the main area for continued evaluation ED Disposition for MSE Condition: Stable Referrals: PRIMARY CARE [Primary Care Provider] - 3-5 Days
--- NOTE | 2017-02-22 21:21 | Emergency Department Report ---
ED Chest Pain HPI - General Chief Complaint: Chest Pain Stated Complaint: CHEST PAIN Time Seen by Provider: 02/22/17 20:59 Source: patient Mode of arrival: Ambulatory Limitations: No Limitations - History of Present Illness Initial Comments: 56 yo female who comes in today due to chest pain. She states that she was walking and talking around noon on today and started having chest pain. The chest pain is described as 10/10, left sided, sharp/pressure-like, with radiation to her left neck and arm. She states that she was recently released from the hospital on last week for chest pain. Stress test was abnormal. Cardiac cath negative. Hx of gerd. MD Complaint: chest pain -: This afternoon Onset: during exertion Pain Location: left chest Pain Radiation: LUE, back, neck Severity: severe Severity scale (0 -10): 10 Quality: aching, sharp, pressure Consistency: constant Improves With: remaining still Worsens With: exertion, movement Context: other (none) Treatments Prior to Arrival: none Aspirin use within the Past 7 Days: (0) No - Related Data On Oral Contraceptives: No Home Medications Medication Instructions Recorded Confirmed Last Taken Tiotropium [Spiriva] 18 mcg IH QDAY 03/03/16 02/09/17 02/05/17 Amitriptyline [Elavil] 50 mg PO QHS 02/06/17 02/09/17 02/05/17 AtorvaSTATin [Lipitor] 20 mg PO QHS 02/06/17 02/09/17 02/05/17 Clonidine HCl [Kapvay] 0.1 mg PO BID 02/06/17 02/09/17 02/05/17 Fluticasone/Vilanterol [Breo 1 each IH DAILY 02/06/17 02/09/17 02/05/17 Ellipta 100-25 Mcg INH] Ipratropium/Albuterol Sulfate 1 ampul IH Q6HR 02/06/17 02/09/17 02/05/17 [DUONEB *Not for PRN Use*] Ranitidine HCl [Acid Gymnastic Coach] 150 mg PO BID 02/06/17 02/09/17 02/05/17 levETIRAcetam [Keppra TAB] 1,000 mg PO BID 02/06/17 02/09/17 02/05/17 Previous Rx's Medication Instructions Recorded Last Taken Type Cyclobenzaprine [Flexeril 10 MG 10 mg PO TID PRN #30 tablet 02/12/17 Unknown Rx TAB] FLUoxetine HCL [Fluoxetine HCl] 80 mg PO QAM #20 capsule 02/12/17 Unknown Rx FLUoxetine [PROzac] 80 mg PO QDAY capsule 02/12/17 Unknown Rx Famotidine [Pepcid] 20 mg PO BID #60 tablet 02/12/17 Unknown Rx Gabapentin [Neurontin] 300 mg PO Q8HR #60 capsule 02/12/17 Unknown Rx HYDROcodone/APAP 7.5-325 [[place] 1 each PO Q8HR PRN #12 tablet 02/12/17 Unknown Rx 7.5-325 mg TAB] Nicotine [Habitrol] 14 mg TD QDAY #14 patch 02/12/17 Unknown Rx cloNIDine [Catapres] 0.1 mg PO BID #30 tablet 02/12/17 Unknown Rx levETIRAcetam [Keppra TAB] 1,000 mg PO BID #60 tablet 02/12/17 Unknown Rx Allergies Allergy/AdvReac Type Severity Reaction Status Date / Time divalproex sodium Allergy Itching Verified 03/02/16 17:13 [From Depakote] phenytoin sodium Allergy Itching Verified 03/02/16 17:13 [From Dilantin] phenytoin sodium extended Allergy Itching Verified 03/02/16 17:13 [From Dilantin] Tetracyclines Allergy Itching Verified 03/02/16 17:13 NSAIDS (Non-Steroidal AdvReac "KIDNEYS" Verified 03/02/16 17:13 Anti-Inflamma Heart Score - HEART Score History: Slightly suspicious EKG: Non-specific Age: 45-65 Risk factors: > 3 risk factors or hx of atherosclerotic disease Troponin: < normal limit HEART Score: 4 ED Review of Systems ROS: Stated complaint: CHEST PAIN Other details as noted in HPI Constitutional: denies: chills, fever Eyes: denies: eye pain, eye discharge, vision change Respiratory: denies: cough, shortness of breath, wheezing Cardiovascular: as per HPI Endocrine: no symptoms reported Gastrointestinal: denies: abdominal pain, nausea, diarrhea Genitourinary: denies: urgency, dysuria, discharge Musculoskeletal: back pain Skin: denies: rash, lesions Neurological: denies: headache, weakness, paresthesias Psychiatric: denies: anxiety, depression Hematological/Lymphatic: denies: easy bleeding, easy bruising ED Past Medical Hx - Past Medical History Previous Medical History?: Yes Hx Hypertension: Yes Hx Congestive Heart Failure: Yes Hx Diabetes: No Hx GERD: Yes Hx Liver Disease: Yes Hx Renal Disease: Yes (stage III) Hx Arthritis: Yes (rhematoid) Hx Seizures: Yes Hx Psychiatric Treatment: Yes (bipolar) Hx Asthma: No Hx COPD: Yes Additional medical history: lupus,heart disease, BBB - Surgical History Hx Appendectomy: Yes Additional Surgical History: left knee replacement,torn LT shoulder replacement.total hysterectomy,C-Spine effusion,L-4 herniated - Social History Smoking Status: Never Smoker Substance Use Type: None - Medications Home Medications: Home Medications Medication Instructions Recorded Confirmed Last Taken Type Tiotropium [Spiriva] 18 mcg IH QDAY 03/03/16 02/09/17 02/05/17 History Amitriptyline [Elavil] 50 mg PO QHS 02/06/17 02/09/17 02/05/17 History AtorvaSTATin [Lipitor] 20 mg PO QHS 02/06/17 02/09/17 02/05/17 History Clonidine HCl [Kapvay] 0.1 mg PO BID 02/06/17 02/09/17 02/05/17 History Fluticasone/Vilanterol [Breo 1 each IH DAILY 02/06/17 02/09/17 02/05/17 History Ellipta 100-25 Mcg INH] Ipratropium/Albuterol Sulfate 1 ampul IH Q6HR 02/06/17 02/09/17 02/05/17 History [DUONEB *Not for PRN Use*] Ranitidine HCl [Acid Gymnastic Coach] 150 mg PO BID 02/06/17 02/09/17 02/05/17 History levETIRAcetam [Keppra TAB] 1,000 mg PO BID 02/06/17 02/09/17 02/05/17 History Cyclobenzaprine [Flexeril 10 MG 10 mg PO TID PRN #30 tablet 02/12/17 Unknown Rx TAB] FLUoxetine HCL [Fluoxetine HCl] 80 mg PO QAM #20 capsule 02/12/17 Unknown Rx FLUoxetine [PROzac] 80 mg PO QDAY capsule 02/12/17 Unknown Rx Famotidine [Pepcid] 20 mg PO BID #60 tablet 02/12/17 Unknown Rx Gabapentin [Neurontin] 300 mg PO Q8HR #60 capsule 02/12/17 Unknown Rx HYDROcodone/APAP 7.5-325 [[place] 1 each PO Q8HR PRN #12 tablet 02/12/17 Unknown Rx 7.5-325 mg TAB] Nicotine [Habitrol] 14 mg TD QDAY #14 patch 02/12/17 Unknown Rx cloNIDine [Catapres] 0.1 mg PO BID #30 tablet 02/12/17 Unknown Rx levETIRAcetam [Keppra TAB] 1,000 mg PO BID #60 tablet 02/12/17 Unknown Rx ED Physical Exam - General Limitations: No Limitations General appearance: alert, in no apparent distress - Head Head exam: Present: atraumatic, normocephalic - Eye Eye exam: Present: normal appearance - ENT ENT exam: Present: mucous membranes moist - Neck Neck exam: Present: normal inspection - Respiratory Respiratory exam: Present: normal lung sounds bilaterally, chest wall tenderness (left sided). Absent: respiratory distress - Cardiovascular Cardiovascular Exam: Present: regular rate, normal rhythm. Absent: systolic murmur, diastolic murmur, rubs, gallop - GI/Abdominal GI/Abdominal exam: Present: soft, normal bowel sounds - Extremities Exam Extremities exam: Present: normal inspection - Back Exam Back exam: Present: normal inspection - Neurological Exam Neurological exam: Present: alert, oriented X3 - Psychiatric Psychiatric exam: Present: normal affect, normal mood - Skin Skin exam: Present: warm, dry, intact, normal color. Absent: rash ED Course Vital Signs 02/22/17 02/22/17 02/22/17 18:57 21:25 21:34 Temperature 99 F Pulse Rate 88 65 84 Respiratory 18 18 Rate Blood Pressure 145/77 128/78 Blood Pressure 120/60 [Left] O2 Sat by Pulse 100 100 Oximetry 02/22/17 02/22/17 22:28 22:38 Temperature Pulse Rate 65 Respiratory 16 18 Rate Blood Pressure Blood Pressure 123/65 [Left] O2 Sat by Pulse 100 Oximetry - Reevaluation(s) Reevaluation #1: 02/22/17 23:05 Cardiac workup unremarkable. UDS positive for cocaine and amphetamines. I spoke with hospitalist and we both agreed that patient can be safely discharged home. Heart cath 02/13/17 essentially normal and medical management and risk factors to be addressed. CHAYO score - Chayo Score Age > 65: (0) No Aspirin use within the Past 7 Days: (0) No 3 or more CAD Risk Factors: (1) Yes 2 or more Angina events in past 24 hrs: (0) No Known CAD with more than 50% Stenosis: (0) No Elevated Cardiac Markers: (0) No ST Deviation Greater than 0.5mm: (0) No CHAYO Score: 1 ED Medical Decision Making - Lab Data Result diagrams: 02/22/17 21:15 02/22/17 21:15 - EKG Data EKG shows normal: sinus rhythm Rate: normal - EKG Data When compared to previous EKG there are: no significant change (02/09/17) Interpretation: no acute changes, nonspecific ST-T wave shai - Radiology Data Radiology results: image reviewed interpreted by me: No acute pathology. - Medical Decision Making Chest pain Cocaine use Amphetamine use Drug seeking behavior - Differential Diagnosis chest pain, gerd, cocaine/amphetamine use, drug seeking behavior Critical care attestation.: If time is entered above; I have spent that time in minutes in the direct care of this critically ill patient, excluding procedure time. ED Disposition Clinical Impression: Chest pain, GERD (gastroesophageal reflux disease), Cocaine abuse, Amphetamine abuse Disposition: DC-01 TO HOME OR SELFCARE Is pt being admited?: No Does the pt Need Aspirin: No Condition: Stable Instructions: Chest Pain (ED) Additional Instructions: Please follow up with your provider on discharge. May resume your regularly scheduled medications. Referrals: PRIMARY CARE, [Primary Care Provider] - 3-5 Days Time of Disposition: 23:10
[2017-02-22] MEDS ORDERED: NITROSTAT SL ONE (21:24)
[2017-02-22] MEDS ORDERED: ALUM-MAG HYDROX-SIMETH 200-200-20MG/5ML PO ONE (21:26)
[2017-02-22] MEDS ORDERED: LIDOCAINE VISCOUS 2% MM NR (21:30)
[2017-02-22] MEDS ORDERED: ALUM-MAG HYDROX-SIMETH 200-200-20MG/5ML ONE (21:34)
[2017-02-22 21:45] LABS: Basophils % (Auto) 1.3 % (0.0-1.8); Eosinophils % (Auto) 2.1 % (0.0-4.3); Hematocrit 39.1 % (30.3-42.9); Hemoglobin 12.5 gm/dl (10.1-14.3); Mean Corpuscular HGB Conc 32 % (30-34); Mean Corpuscular Hemoglobin 30 pg (28-32); Mean Corpuscular Volume 93 fl (79-97); Platelet Count 313 K/mm3 (140-440); Red Blood Count 4.23 M/mm3 (3.65-5.03); Red Cell Distribution Width 14.5 % (13.2-15.2); White Blood Count 7.5 K/mm3 (4.5-11.0)
[2017-02-22 21:54] LABS: INR 0.93 (0.87-1.13); Partial Thromboplastin Time 30.3 Sec. (24.2-36.6)
[2017-02-22 22:01] LABS: Creatine Kinase MB 1.5 ng/mL (0.0-4.0)
[2017-02-22 22:02] LABS: Alanine Aminotransferase 10 units/L (7-56); Albumin 3.9 g/dL (3.9-5); Albumin/Globulin Ratio 1.6 %; Alkaline Phosphatase 89 units/L (35-129); Anion Gap 19 mmol/L; BUN/Creatinine Ratio 15; Blood Urea Nitrogen 15 mg/dL (7-17); Calcium 8.9 mg/dL (8.4-10.2); Carbon Dioxide 21 mmol/L (22-30); Creatine Kinase 71 units/L (30-135); Glucose 96 mg/dL (65-100); Lipase 62 units/L (13-60); Potassium 4.5 mmol/L (3.6-5.0); Sodium 141 mmol/L (137-145); Total Protein 6.4 g/dL (6.3-8.2)
[2017-02-22 22:30] LABS: Urine Drugs of Abuse Note Disclamer
[2017-02-22 22:37] LABS: Bilirubin,Urine NEG (Negative); Blood,Urine NEG (Negative); Ketones,Urine NEG (Negative); Leukocyte Esterase,Urine NEG (Negative); Mucus,Urine FEW /HPF; Nitrite,Urine NEG (Negative); Protein,Urine <15 mg/dL mg/dL (Negative); Urobilinogen,Urine < 2.0 mg/dL (<2.0); WBC,Urine < 1.0 /HPF (0.0-6.0)
[2017-02-22 22:39] VITALS: BP 123/65
--- NOTE | 2017-02-22 23:22 | XRay Report ---
FINAL REPORT PROCEDURE: Chest. TECHNIQUE: PA and lateral views. HISTORY: Chest pain. COMPARISON: No prior studies are available for comparison. FINDINGS: The heart and mediastinum appear normal. There is mild tortuosity of the thoracic aorta. The lungs are clear and well expanded. There are no pleural effusions. There is a right-sided chest port. The soft tissues are unremarkable. There is a left humeral head prosthesis. There is an anterior fusion plate in the lower cervical spine. IMPRESSION: No evidence of acute disease.
== END 2017-02-22 23:19 | disposition home or self-care (01) ==
LOC: ED 18:44
DX: K21.9 Gastro-esophageal reflux disease without esophagitis (principal); R07.9 Chest pain, unspecified; F14.10 Cocaine abuse, uncomplicated; F15.10 Other stimulant abuse, uncomplicated; I10 Essential (primary) hypertension; I50.9 Heart failure, unspecified; F31.9 Bipolar disorder, unspecified; J44.9 Chronic obstructive pulmonary disease, unspecified
CPT/HCPCS: 36415; 71020; 80053; 80307; 81001; 82550; 82553; 83690; 84484; 85025; 85379; 85610; 85730; 93005; 93010

== ENCOUNTER 2021-04-02 16:48 | Observation (INO) | payer MEDICARE ==
--- NOTE | 2021-04-02 17:06 | Emergency Department Report ---
ED Chest Pain HPI - General Stated Complaint: CHEST PAIN Time Seen by Provider: 04/02/21 16:55 Source: patient, EMS - History of Present Illness Initial Comments: Patient is 60 years old female with history of coronary arteries disease with history of stent. She also has a history of congestive heart failure. She also had history of lupus. Patient also stated that she was diagnosed with COVID-19 on March 28 and she did not have a negative test yet. Patient presented to the ER via EMS complaining of left-sided chest pain, tight in nature associated with shortness of breath. Patient denied any fever or chills. No abdominal pain, nausea or vomiting. MD Complaint: chest pain -: hour(s) (3) Onset: during rest Pain Location: substernal, left chest Pain Radiation: none Severity: moderate Severity scale (0 -10): 5 Quality: tightness - Related Data Home Medications Medication Instructions Recorded Confirmed Last Taken Tiotropium [Spiriva] 18 mcg IH QDAY 03/03/16 02/09/17 02/05/17 Amitriptyline [Elavil] 50 mg PO QHS 02/06/17 02/09/17 02/05/17 AtorvaSTATin [Lipitor] 20 mg PO QHS 02/06/17 02/09/17 02/05/17 Clonidine HCl [Kapvay] 0.1 mg PO BID 02/06/17 02/09/17 02/05/17 Fluticasone/Vilanterol [Breo 1 each IH DAILY 02/06/17 02/09/17 02/05/17 Ellipta 100-25 Mcg INH] Ipratropium/Albuterol Sulfate 1 ampul IH Q6HR 02/06/17 02/09/17 02/05/17 [DUONEB *Not for PRN Use*] levETIRAcetam [Keppra TAB] 1,000 mg PO BID 02/06/17 02/09/17 02/05/17 raNITIdine HCl [Acid Direct Marketing Specialist] 150 mg PO BID 02/06/17 02/09/17 02/05/17 Previous Rx's Medication Instructions Recorded Last Taken Type Cyclobenzaprine [Flexeril 10 MG 10 mg PO TID PRN #30 tablet 02/12/17 Unknown Rx TAB] FLUoxetine HCL [Fluoxetine HCl] 80 mg PO QAM #20 capsule 02/12/17 Unknown Rx FLUoxetine [PROzac] 80 mg PO QDAY capsule 02/12/17 Unknown Rx Famotidine [Pepcid] 20 mg PO BID #60 tablet 02/12/17 Unknown Rx Gabapentin 300 mg PO Q8HR #60 capsule 02/12/17 Unknown Rx HYDROcodone/APAP 7.5-325 [[place] 1 each PO Q8HR PRN #12 tablet 02/12/17 Unknown Rx 7.5-325 mg TAB] Nicotine [Habitrol] 14 mg TD QDAY #14 patch 02/12/17 Unknown Rx cloNIDine [Catapres] 0.1 mg PO BID #30 tablet 02/12/17 Unknown Rx levETIRAcetam [Keppra TAB] 1,000 mg PO BID #60 tablet 02/12/17 Unknown Rx Allergies Allergy/AdvReac Type Severity Reaction Status Date / Time divalproex sodium Allergy Itching Verified 03/02/16 17:13 [From Depakote] phenytoin sodium Allergy Itching Verified 03/02/16 17:13 [From Dilantin] phenytoin sodium extended Allergy Itching Verified 03/02/16 17:13 [From Dilantin] Tetracyclines Allergy Itching Verified 03/02/16 17:13 NSAIDS (Non-Steroidal AdvReac "KIDNEYS" Verified 03/02/16 17:13 Anti-Inflamma Heart Score - HEART Score History: Moderately suspicious EKG: Non-specific Age: 45-65 Risk factors: > 3 risk factors or hx of atherosclerotic disease Troponin: < normal limit HEART Score: 5 - EKG Read Time Time EKG Completed: 17:32 EKG Read Time: 17:33 - Critical Actions Critical Actions: 4-6 pts:12-16.6% risk of adverse cardiac event. Should be admitted ED Review of Systems ROS: Stated complaint: CHEST PAIN Other details as noted in HPI Comment: All other systems reviewed and negative Constitutional: denies: chills, fever Respiratory: shortness of breath, SOB with exertion, SOB at rest. denies: cough, wheezing Cardiovascular: chest pain Gastrointestinal: denies: abdominal pain, nausea, vomiting Neurological: denies: headache, weakness, numbness, paresthesias, confusion, ab normal gait ED Past Medical Hx - Past Medical History Hx Hypertension: Yes Hx Congestive Heart Failure: Yes Hx Diabetes: No Hx GERD: Yes Hx Liver Disease: Yes Hx Renal Disease: Yes (stage III) Hx Arthritis: Yes (rhematoid) Hx Seizures: Yes Hx Psychiatric Treatment: Yes (bipolar) Hx Asthma: No Hx COPD: Yes Additional medical history: lupus,heart disease, BBB - Surgical History Hx Appendectomy: Yes Additional Surgical History: left knee replacement,torn LT shoulder replacement.total hysterectomy,C-Spine effusion,L-4 herniated - Social History Smoking Status: Never Smoker Substance Use Type: None - Medications Home Medications: Home Medications Medication Instructions Recorded Confirmed Last Taken Type Tiotropium [Spiriva] 18 mcg IH QDAY 03/03/16 02/09/17 02/05/17 History Amitriptyline [Elavil] 50 mg PO QHS 02/06/17 02/09/17 02/05/17 History AtorvaSTATin [Lipitor] 20 mg PO QHS 02/06/17 02/09/17 02/05/17 History Clonidine HCl [Kapvay] 0.1 mg PO BID 02/06/17 02/09/17 02/05/17 History Fluticasone/Vilanterol [Breo 1 each IH DAILY 02/06/17 02/09/17 02/05/17 History Ellipta 100-25 Mcg INH] Ipratropium/Albuterol Sulfate 1 ampul IH Q6HR 02/06/17 02/09/17 02/05/17 History [DUONEB *Not for PRN Use*] levETIRAcetam [Keppra TAB] 1,000 mg PO BID 02/06/17 02/09/17 02/05/17 History raNITIdine HCl [Acid Direct Marketing Specialist] 150 mg PO BID 02/06/17 02/09/17 02/05/17 History Cyclobenzaprine [Flexeril 10 MG 10 mg PO TID PRN #30 tablet 02/12/17 Unknown Rx TAB] FLUoxetine HCL [Fluoxetine HCl] 80 mg PO QAM #20 capsule 02/12/17 Unknown Rx FLUoxetine [PROzac] 80 mg PO QDAY capsule 02/12/17 Unknown Rx Famotidine [Pepcid] 20 mg PO BID #60 tablet 02/12/17 Unknown Rx Gabapentin 300 mg PO Q8HR #60 capsule 02/12/17 Unknown Rx HYDROcodone/APAP 7.5-325 [[place] 1 each PO Q8HR PRN #12 tablet 02/12/17 Unknown Rx 7.5-325 mg TAB] Nicotine [Habitrol] 14 mg TD QDAY #14 patch 02/12/17 Unknown Rx cloNIDine [Catapres] 0.1 mg PO BID #30 tablet 02/12/17 Unknown Rx levETIRAcetam [Keppra TAB] 1,000 mg PO BID #60 tablet 02/12/17 Unknown Rx ED Physical Exam - General General appearance: alert, in no apparent distress - Head Head exam: Present: atraumatic, normocephalic, normal inspection - Eye Eye exam: Present: normal appearance, PERRL - ENT ENT exam: Present: normal exam, normal orophraynx, mucous membranes moist - Neck Neck exam: Present: normal inspection, full ROM. Absent: tenderness, meningismus - Respiratory Respiratory exam: Present: normal lung sounds bilaterally - Cardiovascular Cardiovascular Exam: Present: regular rate, normal rhythm, normal heart sounds - GI/Abdominal GI/Abdominal exam: Present: soft, normal bowel sounds. Absent: distended, tenderness, guarding, rebound, rigid, mass, bruit, pulsatile mass, hernia - Extremities Exam Extremities exam: Present: normal inspection, full ROM, normal capillary refill. Absent: tenderness - Back Exam Back exam: Present: normal inspection, full ROM. Absent: CVA tenderness (R), CVA tenderness (L) - Neurological Exam Neurological exam: Present: alert, oriented X3, CN II-XII intact - Psychiatric Psychiatric exam: Present: normal affect, normal mood - Skin Skin exam: Present: warm, intact, normal color ED Course Vital Signs 04/02/21 04/02/21 04/02/21 17:07 20:30 20:36 Temperature 98.0 F Pulse Rate 69 71 69 Respiratory 16 12 19 Rate Blood Pressure 103/79 109/53 119/80 [Right] O2 Sat by Pulse 100 98 99 Oximetry CHAYO score - Chayo Score Age > 65: (0) No Aspirin use within the Past 7 Days: (0) No 3 or more CAD Risk Factors: (1) Yes 2 or more Angina events in past 24 hrs: (0) No Known CAD with more than 50% Stenosis: (0) No Elevated Cardiac Markers: (0) No ST Deviation Greater than 0.5mm: (0) No CHAYO Score: 1 ED Medical Decision Making - Lab Data Result diagrams: 04/02/21 22:31 04/02/21 22:31 - EKG Data -: EKG Interpreted by Me EKG shows normal: sinus rhythm Rate: normal - EKG Data 04/02/21 23:37 Right bundle branch block. - Radiology Data Radiology results: report reviewed - Medical Decision Making Patient is 60 years old female with history of coronary arteries disease with history of stent. She also has a history of congestive heart failure. She also had history of lupus. Patient also stated that she was diagnosed with COVID-19 on March 28 and she did not have a negative test yet. Patient presented to the ER via EMS complaining of left-sided chest pain, tight in nature associated with shortness of breath. Patient denied any fever or chills. No abdominal pain, nausea or vomiting. EKG showed a right bundle branch block no ST elevation. Labs reviewed and is unremarkable. Chest x-ray showed multiple opacities consistent with COVID 19 and pneumonia. Patient received Rocephin and Zithromax. I discussed the patient with Dr Hercules Who agreed to admit the patient to medical service for further management. Critical care attestation.: If time is entered above; I have spent that time in minutes in the direct care of this critically ill patient, excluding procedure time. ED Disposition Clinical Impression: Acute chest pain, Bilateral pneumonia, COVID-19 Disposition: 09 ADMITTED INPATIENT Is pt being admited?: Yes Condition: Stable Instructions: Chest Pain (ED), Bacterial Pneumonia (ED) Referrals: [facility] [Other] - 3-5 Days
--- NOTE | 2021-04-02 17:34 | XRay Report ---
CHEST 1 VIEW INDICATION / CLINICAL INFORMATION: Chest Pain. COMPARISON: 02/22/2017 FINDINGS: SUPPORT DEVICES: Right-sided Port-A-Cath noted with tip in the mid SVC. HEART / MEDIASTINUM: No significant abnormality. LUNGS / PLEURA: No significant pulmonary or pleural abnormality. No pneumothorax. ADDITIONAL FINDINGS: No significant additional findings. IMPRESSION: 1. No acute findings. Signer Name: Aniket Brock MD Signed: 04/02/2021 5:29 PM Workstation Name: [id number]
[2021-04-02] MEDS ORDERED: MORPHINE 4 MG/1 ML INJ IV ONE (22:57)
[2021-04-02] MEDS ORDERED: ONDANSETRON 4 MG/2 ML INJ IV ONE (23:02)
[2021-04-02 23:14] LABS: BUN/Creatinine Ratio 18; Basophils # (Auto) 0.1 K/mm3 (0.0-0.1); Basophils % (Auto) 1.7 % (0.0-1.8); Blood Urea Nitrogen 18 mg/dL (7-17); Calcium 9.1 mg/dL (8.4-10.2); Eosinophils # (Auto) 0.1 K/mm3 (0.0-0.4); Eosinophils % (Auto) 1.9 % (0.0-4.3); Hemolysis Index 2; Lymphocytes # (Auto) 2.5 K/mm3 (1.2-5.4); Lymphocytes % (Auto) 39.5 % (13.4-35.0); Mean Corpuscular HGB Conc 31 % (30-34); Mean Corpuscular Volume 92 fl (79-97); Monocytes # (Auto) 0.7 K/mm3 (0.0-0.8); Monocytes % (Auto) 10.7 % (0.0-7.3); Platelet Count 317 K/mm3 (140-440); Red Blood Count 3.91 M/mm3 (3.65-5.03); Red Cell Distribution Width 15.5 % (13.2-15.2)
[2021-04-02 23:16] LABS: Alanine Aminotransferase 10 units/L (7-56); Albumin 3.6 g/dL (3.9-5)
[2021-04-02 23:22] LABS: Bilirubin,Direct < 0.2 mg/dL (0-0.2)
[2021-04-02 23:24] LABS: INR 0.88 (0.87-1.13)
[2021-04-02 23:25] LABS: Partial Thromboplastin Time 27.3 Sec. (24.2-36.6)
[2021-04-02] MEDS ORDERED: cefTRIAXone/NS 1 GM/50 ML 1 GM/50 ML BAG IV ONE (23:36)
[2021-04-02] MEDS ORDERED: ACETAMINOPHEN 325 MG TAB PO PRN ×2 (23:43)
[2021-04-02] MEDS ORDERED: MORPHINE 4 MG/1 ML INJ IV PRN (23:43)
[2021-04-02] MEDS ORDERED: traMADol 50 MG TAB PO PRN (23:43)
[2021-04-02] MEDS ORDERED: MAGNESIUM HYDROXIDE (MOM) ORAL LIQD UDC PO PRN (23:43)
[2021-04-02] MEDS ORDERED: AZITHROMYCIN/NS 500 MG/250 ML 500 MG/250 ML BAG IV ONE (23:56)
--- NOTE | 2021-04-03 00:01 | History and Physical Report ---
History of Present Illness Date of examination: 04/02/21 Date of admission: 04/02/2021 Chief complaint: Chest Pain History of present illness: 60-year-old white female with known history of COPD, lupus, recent history of COVID 19 pneumonia, coronary artery disease stent placement presents to the emergency room today complaining of chest pain. Chest pain is said to be radiating to both upper extremities. Chest pain felt like tightness with associated shortness of breath. She denies any nausea vomiting denies any abdominal pain. She denies any fever or chills, no headache or dizziness and no diaphoresis. There is no known relieving or exacerbating factor for chest pain. Work-up in the emergency room today, labs including appointment has been negative. Chest x-ray shows no acute abnormality. Patient admitted for chest pain evaluation. Past History Past Medical History: arthritis (Rheumatoid), COPD, GERD, heart failure, hypertension, liver disease, renal failure, seizures, other (Bipolar disorder, lupus,heart disease, BBB) Past Surgical History: appendectomy, Other ( left knee replacement,torn LT shoulder replacement.total hysterectomy,C-Spine effusion,L-4 herniated) Social history: smoking (Current daily smoker) Family history: no significant family history Medications and Allergies Allergies Allergy/AdvReac Type Severity Reaction Status Date / Time divalproex sodium Allergy Itching Verified 03/02/16 17:13 [From Depakote] phenytoin sodium Allergy Itching Verified 03/02/16 17:13 [From Dilantin] phenytoin sodium extended Allergy Itching Verified 03/02/16 17:13 [From Dilantin] Tetracyclines Allergy Itching Verified 03/02/16 17:13 NSAIDS (Non-Steroidal AdvReac "KIDNEYS" Verified 03/02/16 17:13 Anti-Inflamma Home Medications Medication Instructions Recorded Confirmed Last Taken Type Tiotropium [Spiriva] 18 mcg IH QDAY 03/03/16 02/09/17 02/05/17 History Amitriptyline [Elavil] 50 mg PO QHS 02/06/17 02/09/17 02/05/17 History AtorvaSTATin [Lipitor] 20 mg PO QHS 02/06/17 02/09/17 02/05/17 History Clonidine HCl [Kapvay] 0.1 mg PO BID 02/06/17 02/09/17 02/05/17 History Fluticasone/Vilanterol [Breo 1 each IH DAILY 02/06/17 02/09/17 02/05/17 History Ellipta 100-25 Mcg INH] Ipratropium/Albuterol Sulfate 1 ampul IH Q6HR 02/06/17 02/09/17 02/05/17 History [DUONEB *Not for PRN Use*] levETIRAcetam [Keppra TAB] 1,000 mg PO BID 02/06/17 02/09/17 02/05/17 History raNITIdine HCl [Acid Record Maker] 150 mg PO BID 02/06/17 02/09/17 02/05/17 History Cyclobenzaprine [Flexeril 10 MG 10 mg PO TID PRN #30 tablet 02/12/17 Unknown Rx TAB] FLUoxetine HCL [Fluoxetine HCl] 80 mg PO QAM #20 capsule 02/12/17 Unknown Rx FLUoxetine [PROzac] 80 mg PO QDAY capsule 02/12/17 Unknown Rx Famotidine [Pepcid] 20 mg PO BID #60 tablet 02/12/17 Unknown Rx Gabapentin 300 mg PO Q8HR #60 capsule 02/12/17 Unknown Rx HYDROcodone/APAP 7.5-325 [[place] 1 each PO Q8HR PRN #12 tablet 02/12/17 Unknown Rx 7.5-325 mg TAB] Nicotine [Habitrol] 14 mg TD QDAY #14 patch 02/12/17 Unknown Rx cloNIDine [Catapres] 0.1 mg PO BID #30 tablet 02/12/17 Unknown Rx levETIRAcetam [Keppra TAB] 1,000 mg PO BID #60 tablet 02/12/17 Unknown Rx Active Meds: Active Medications Acetaminophen (Acetaminophen 325 Mg Tab) 650 mg PO Q4H PRN PRN Reason: Pain MILD(1-3)/Fever >100.5/SARAVIA Acetaminophen (Acetaminophen 325 Mg Tab) 650 mg PO Q6H PRN PRN Reason: Pain, Mild (1-3) Aspirin (Aspirin Ec 325 Mg Tab) 325 mg PO QDAY [facility] Heparin Sodium (Porcine) (Heparin 5,000 Unit/1 Ml Vial) 5,000 unit SUB-Q Q8HR [facility] Ceftriaxone Sodium (Rocephin/Ns 1 Gm/50 Ml) 1 gm in 50 mls @ 100 mls/hr IV ONCE ONE; Protocol Stop: 04/03/21 00:05 Azithromycin (Zithromax/Ns) 500 mg in 250 mls @ 250 mls/hr IV ONCE ONE; Protocol Stop: 04/03/21 00:55 Sodium Chloride (Nacl 0.45% 1000 Ml) 1,000 mls @ 75 mls/hr IV DIRECT DELFINA Ceftriaxone Sodium (Rocephin/Ns 2 Gm/100 Ml) 2 gm in 100 mls @ 200 mls/hr IV Q24H DELFINA; Protocol Azithromycin (Zithromax/Ns) 500 mg in 250 mls @ 250 mls/hr IV Q24H DELFINA; Protocol Magnesium Hydroxide (Magnesium Hydroxide (Mom) Oral Liqd Udc) 30 ml PO Q4H PRN PRN Reason: Constipation Morphine Sulfate (Morphine 2 Mg/1 Ml Inj) 2 mg IV Q4H PRN PRN Reason: Pain, Moderate (4-6) Morphine Sulfate (Morphine 4 Mg/1 Ml Inj) 4 mg IV Q4H PRN PRN Reason: Pain , Severe (7-10) Ondansetron HCl (Ondansetron 4 Mg/2 Ml Inj) 4 mg IV Q8H PRN PRN Reason: Nausea And Vomiting Sodium Chloride (Sodium Chloride 0.9% 10 Ml Flush Syringe) 10 ml IV BID DELFINA Sodium Chloride (Sodium Chloride 0.9% 10 Ml Flush Syringe) 10 ml IV PRN PRN PRN Reason: LINE FLUSH Sodium Chloride (Sodium Chloride 0.9% 10 Ml Flush Syringe) 10 ml IV PRN PRN PRN Reason: LINE FLUSH Tramadol HCl (Tramadol 50 Mg Tab) 50 mg PO Q6H PRN PRN Reason: Pain, Moderate (4-6) Review of Systems Constitutional: no fever, no chills Ears, nose, mouth and throat: no nasal congestion, no sore throat Cardiovascular: chest pain, no palpitations Respiratory: no cough, no shortness of breath Gastrointestinal: no abdominal pain, no nausea, no vomiting, no diarrhea Genitourinary Female: no pelvic pain, no flank pain, no dysuria, no hematuria Musculoskeletal: no neck pain, no low back pain Integumentary: no rash, no pruritis Neurological: no headaches, no confusion Psychiatric: no anxiety, no depression Endocrine: no polyphagia, no polydipsia, no polyuria, no nocturia Exam - Constitutional Vitals: Temp Pulse Resp BP Pulse Ox 98.0 F 69 19 119/80 99 04/02/21 17:07 04/02/21 20:36 04/02/21 20:36 04/02/21 20:36 04/02/21 20:36 General appearance: Present: no acute distress, well-nourished - EENT Eyes: Present: PERRL, EOM intact. Absent: scleral icterus ENT: hearing intact, clear oral mucosa, dentition normal - Neck Neck: Present: supple, normal ROM - Respiratory Respiratory effort: normal Respiratory: bilateral: CTA - Cardiovascular Rhythm: regular Heart Sounds: Present: S1 & S2. Absent: gallop, systolic murmur, diastolic murmur, rub, click - Extremities Extremities: no ischemia, pulses intact, pulses symmetrical, No edema, normal temperature, normal color, Full ROM Peripheral Pulses: within normal limits - Abdominal General gastrointestinal: Present: soft, non-tender, non-distended, normal bowel sounds. Absent: mass - Integumentary Integumentary: Present: clear, warm, dry. Absent: rash - Musculoskeletal Musculoskeletal: strength equal bilaterally - Psychiatric Psychiatric: appropriate mood/affect, intact judgment & insight, memory intact, cooperative - Neurologic Neurologic: CNII-XII intact, no focal deficits, moves all extremities HEART Score - HEART Score History: Slightly suspicious EKG: Non-specific Age: 45-65 Risk factors: > 3 risk factors or hx of atherosclerotic disease Troponin: Troponin T < 0.010 ng/mL (0.00-0.029) 04/02/21 22:31 Troponin: < normal limit HEART Score: 4 - Critical Actions Critical Actions: 4-6 pts:12-16.6% risk of adverse cardiac event. Should be admitted Results - Labs CBC & Chem 7: 04/02/21 22:31 04/02/21 22:31 Labs: Abnormal lab results 04/02/21 04/02/21 04/02/21 Range/Units 22:31 22:31 22:31 RDW 15.5 H (13.2-15.2) % Lymph % (Auto) 39.5 H (13.4-35.0) % [place] % (Auto) 10.7 H (0.0-7.3) % BUN 18 H (7-17) mg/dL Total Protein 5.9 L (6.3-8.2) g/dL Albumin 3.6 L (3.9-5) g/dL Assessment and Plan - Patient Problems (1) Acute chest pain Current Visit: Yes Status: Acute Plan to address problem: General admitted and placed on telemetry. We will check serial cardiac enzymes. Patient be placed on daily aspirin, sublingual nitroglycerin and IV morphine for chest pain. Patient has known history of coronary artery disease with stent placement in the past. (2) Seizure Current Visit: No Status: Acute Plan to address problem: Patient be placed on seizure precautions and continue routine home medications. (3) Lupus Current Visit: No Status: Chronic Plan to address problem: Will continue routine home medications. (4) Pneumonia due to COVID-19 virus Current Visit: Yes Status: Acute Plan to address problem: Patient has recent history of COVID-19 pneumonia diagnosed on March 28. Will consult infectious disease for further evaluation. (5) DVT prophylaxis Current Visit: No Status: Acute Plan to address problem: Patient placed on subcutaneous heparin. (6) Full code status Current Visit: Yes Status: Acute Plan to address problem: Patient is full code.
[2021-04-03] MEDS ORDERED: dexAMETHasone 20 MG/5 ML VIAL IV ONE (01:37)
[2021-04-03 03:53] LABS: Basophils # (Auto) 0.1 K/mm3 (0.0-0.1); Basophils % (Auto) 1.2 % (0.0-1.8); Eosinophils # (Auto) 0.1 K/mm3 (0.0-0.4); Eosinophils % (Auto) 2.1 % (0.0-4.3); Hematocrit 36.7 % (30.3-42.9); Hemoglobin 11.6 gm/dl (10.1-14.3); Lymphocytes # (Auto) 2.2 K/mm3 (1.2-5.4); Lymphocytes % (Auto) 40.8 % (13.4-35.0); Mean Corpuscular HGB Conc 32 % (30-34); Mean Corpuscular Volume 93 fl (79-97); Monocytes # (Auto) 0.5 K/mm3 (0.0-0.8); Monocytes % (Auto) 8.9 % (0.0-7.3); Platelet Count 334 K/mm3 (140-440); Red Blood Count 3.96 M/mm3 (3.65-5.03); Red Cell Distribution Width 15.3 % (13.2-15.2)
[2021-04-03] MEDS: MORPHINE 2 MG/1 ML INJ IV PRN ×3 (04:14→21:17)
[2021-04-03] MEDS: SODIUM CHLORIDE 0.45% 1000 ML 1,000 ML IV SCH ×2 (04:14→23:05)
[2021-04-03] MEDS: ONDANSETRON 4 MG/2 ML INJ IV PRN (04:20)
[2021-04-03] MEDS: HEPARIN 5,000 UNIT/1 ML VIAL SUB-Q SCH ×3 (06:24→21:14)
[2021-04-03] MEDS ORDERED: AZITHROMYCIN/NS 500 MG/250 ML 500 MG/250 ML BAG IV SCH (10:00)
[2021-04-03] MEDS: ASPIRIN EC 325 MG TAB PO SCH (11:43)
--- NOTE | 2021-04-03 14:31 | Progress Note ---
Assessment and Plan (1) Acute chest pain Current Visit: Yes Status: Acute Plan to address problem: General admitted and placed on telemetry. We will check serial cardiac enzymes. Patient be placed on daily aspirin, sublingual nitroglycerin and IV morphine for chest pain. Patient has known history of coronary artery disease with stent placement in the past. (2) Seizure Current Visit: No Status: Acute Plan to address problem: Patient be placed on seizure precautions and continue routine home medications. (3) Lupus Current Visit: No Status: Chronic Plan to address problem: Will continue routine home medications. (4) Pneumonia due to COVID-19 virus Current Visit: Yes Status: Acute Plan to address problem: Patient has recent history of COVID-19 pneumonia diagnosed on March 28. Will consult infectious disease for further evaluation. (5) DVT prophylaxis Current Visit: No Status: Acute Plan to address problem: Patient placed on subcutaneous heparin. (6) Full code status Current Visit: Yes Status: Acute Plan to address problem: Patient is full code. Subjective Date of service: 04/03/21 Objective - Constitutional Vitals: Vital Signs - 12hr 04/03/21 04/03/21 04/03/21 02:33 04:14 04:22 Temperature Pulse Rate 66 Respiratory 17 18 Rate Blood Pressure Blood Pressure 110/66 [Right] O2 Sat by Pulse 96 96 Oximetry 04/03/21 04/03/21 04:44 11:27 Temperature 98.1 F Pulse Rate 62 Respiratory 17 18 Rate Blood Pressure 123/70 Blood Pressure [Right] O2 Sat by Pulse 99 Oximetry - Labs CBC & Chem 7: 04/03/21 03:28 04/03/21 03:28 Labs: Abnormal lab results 04/02/21 04/02/21 04/02/21 Range/Units 22:31 22:31 22:31 RDW 15.5 H (13.2-15.2) % Lymph % (Auto) 39.5 H (13.4-35.0) % [place] % (Auto) 10.7 H (0.0-7.3) % D-Dimer (0-234) ng/mlDDU BUN 18 H (7-17) mg/dL Glucose (65-100) mg/dL Total Protein 5.9 L (6.3-8.2) g/dL Albumin 3.6 L (3.9-5) g/dL 04/03/21 04/03/21 04/03/21 Range/Units 00:14 03:28 03:28 RDW 15.3 H (13.2-15.2) % Lymph % (Auto) 40.8 H (13.4-35.0) % [place] % (Auto) 8.9 H (0.0-7.3) % D-Dimer 456.31 H (0-234) ng/mlDDU BUN 18 H (7-17) mg/dL Glucose 103 H (65-100) mg/dL Total Protein (6.3-8.2) g/dL Albumin (3.9-5) g/dL HEART Score - HEART Score EKG: Non-specific Age: 45-65 Risk factors: > 3 risk factors or hx of atherosclerotic disease Troponin: Troponin T < 0.010 ng/mL (0.00-0.029) 04/03/21 06:24 Troponin: < normal limit - Critical Actions Critical Actions: 4-6 pts:12-16.6% risk of adverse cardiac event. Should be admitted
--- NOTE | 2021-04-03 15:48 | Progress Note ---
Subjective Date of service: 04/03/21 Interval history: CONSULT DICTATED Objective Vital Signs Temp Pulse Resp BP BP Pulse Ox 04/03/21 11:27 98.1 F 62 18 123/70 99 04/03/21 04:44 17 04/03/21 04:22 66 18 110/66 96 04/03/21 04:14 17 04/03/21 02:33 96 04/03/21 00:40 76 18 102/53 98 04/02/21 20:36 69 19 119/80 99 04/02/21 20:30 71 12 109/53 98 04/02/21 17:07 98.0 F 69 16 103/79 100 - Labs and Meds Cardiac Enzymes 04/02/21 Range/Units 22:31 AST 8 (5-40) units/L Coagulation 04/02/21 Range/Units 22:31 PT 13.0 (12.2-14.9) Sec. INR 0.88 (0.87-1.13) APTT 27.3 (24.2-36.6) Sec. CBC 04/02/21 04/03/21 Range/Units 22:31 03:28 WBC 6.3 5.5 (4.5-11.0) K/mm3 RBC 3.91 3.96 (3.65-5.03) M/mm3 Hgb 11.0 11.6 (10.1-14.3) gm/dl Hct 36.0 36.7 (30.3-42.9) % Plt Count 317 334 (140-440) K/mm3 Lymph # (Auto) 2.5 2.2 (1.2-5.4) K/mm3 [place] # (Auto) 0.7 0.5 (0.0-0.8) K/mm3 Eos # (Auto) 0.1 0.1 (0.0-0.4) K/mm3 Baso # (Auto) 0.1 0.1 (0.0-0.1) K/mm3 Comprehensive Metabolic Panel 04/02/21 04/02/21 04/03/21 Range/Units 22:31 22:31 03:28 Sodium 143 141 (137-145) mmol/L Potassium 4.7 4.5 (3.6-5.0) mmol/L Chloride 106.5 102.5 (98-107) mmol/L Carbon Dioxide 28 26 (22-30) mmol/L BUN 18 H 18 H (7-17) mg/dL Creatinine 1.0 1.0 (0.6-1.2) mg/dL Glucose 100 103 H (65-100) mg/dL Calcium 9.1 9.0 (8.4-10.2) mg/dL Direct Bilirubin < 0.2 (0-0.2) mg/dL Indirect Bilirubin 0.0 mg/dL AST 8 (5-40) units/L ALT 10 (7-56) units/L Alkaline Phosphatase 106 (35-129) units/L Total Protein 5.9 L (6.3-8.2) g/dL Albumin 3.6 L (3.9-5) g/dL
[2021-04-03] MEDS ORDERED: cefTRIAXone/NS 2 GM/100 ML 2 GM/100 ML BAG IV SCH (22:00)
[2021-04-03] MEDS ORDERED: AZITHROMYCIN 250 MG TAB PO SCH (22:00)
[2021-04-04] MEDS: MORPHINE 2 MG/1 ML INJ IV PRN ×3 (02:58→14:52)
[2021-04-04] MEDS: ONDANSETRON 4 MG/2 ML INJ IV PRN (02:58)
[2021-04-04] MEDS: HEPARIN 5,000 UNIT/1 ML VIAL SUB-Q SCH ×4 (06:23→14:53)
[2021-04-04] MEDS ORDERED: REGADENOSON 0.4 MG/5 ML INJ IV ONE ×2 (08:25→11:04)
--- NOTE | 2021-04-04 11:40 | Consultation ---
History of Present Illness - Reason for Consult Consult date: 04/04/21 - History of Present Illness 60-year-old female past medical history COPD, lupus, recent COVID-19 presented to hospital complaining of chest pain. The pain radiates to both upper extremities, and associated with shortness of breath. She otherwise denies any other symptoms. Afebrile since admission with a white count 5.5. Covid negative. Normal renal function. Blood cultures no growth so far. Imaging personally reviewed: Chest x-ray: No acute findings. Review of Systems: Bold if positive, otherwise negative General: fevers, chills, rigors HEENT: visual disturbance, diplopia, eye pain Respiratory: cough, sputum, hemoptysis, shortness of breath Cardiovascular: chest pain, syncope Gastrointestinal: nausea, vomiting, diarrhea, abdominal pain Genitourinary: dysuria, hematuria, flank pain Musculoskeletal: neck pain, back pain, joint pain, edema Neurologic: headaches, seizures Hematologic: easy bruising or bleeding Endocrine: night sweats, acute weight loss Skin: rash, jaundice, redness Psychiatric: suicidal, homicidal ideation Past History Past Medical History: arthritis (Rheumatoid), COPD, GERD, heart failure, hypertension, liver disease, renal failure, seizures, other (Bipolar disorder, lupus,heart disease, BBB) Past Surgical History: appendectomy, Other ( left knee replacement,torn LT shoulder replacement.total hysterectomy,C-Spine effusion,L-4 herniated) Social history: smoking (Current daily smoker) Family history: no significant family history Medications and Allergies Allergies Allergy/AdvReac Type Severity Reaction Status Date / Time divalproex sodium Allergy Itching Verified 03/02/16 17:13 [From Depakote] phenytoin sodium Allergy Itching Verified 03/02/16 17:13 [From Dilantin] phenytoin sodium extended Allergy Itching Verified 03/02/16 17:13 [From Dilantin] Tetracyclines Allergy Itching Verified 03/02/16 17:13 NSAIDS (Non-Steroidal AdvReac "KIDNEYS" Verified 03/02/16 17:13 Anti-Inflamma Home Medications Medication Instructions Recorded Confirmed Last Taken Type Tiotropium [Spiriva] 18 mcg IH QDAY 03/03/16 02/09/17 02/05/17 History Amitriptyline [Elavil] 50 mg PO QHS 11/02/09/17 02/05/17 History AtorvaSTATin [Lipitor] 20 mg PO QHS 02/06/17 02/09/17 02/05/17 History Clonidine HCl [Kapvay] 0.1 mg PO BID 02/06/17 02/09/17 02/05/17 History Fluticasone/Vilanterol [Breo 1 each IH DAILY 02/06/17 02/09/17 02/05/17 History Ellipta 100-25 Mcg INH] Ipratropium/Albuterol Sulfate 1 ampul IH Q6HR 02/06/17 02/09/17 02/05/17 History [DUONEB *Not for PRN Use*] levETIRAcetam [Keppra TAB] 1,000 mg PO BID 02/06/17 02/09/17 02/05/17 History Cyclobenzaprine [Flexeril 10 MG 10 mg PO TID PRN #30 tablet 02/12/17 04/03/21 03/16/21 Rx TAB] FLUoxetine HCL [Fluoxetine HCl] 80 mg PO QAM #20 capsule 02/12/17 Unknown Rx FLUoxetine [PROzac] 80 mg PO QDAY capsule 02/12/17 Unknown Rx Famotidine [Pepcid] 20 mg PO BID #60 tablet 02/12/17 Unknown Rx Gabapentin 300 mg PO Q8HR #60 capsule 02/12/17 04/03/21 04/01/21 13:00 Rx HYDROcodone/APAP 7.5-325 [[place] 1 each PO Q8HR PRN #12 tablet 02/12/17 Unknown Rx 7.5-325 mg TAB] Nicotine [Habitrol] 14 mg TD QDAY #14 patch 02/12/17 Unknown Rx cloNIDine [Catapres] 0.1 mg PO BID #30 tablet 02/12/17 Unknown Rx levETIRAcetam [Keppra TAB] 1,000 mg PO BID #60 tablet 02/12/17 04/01/21 09:00 Rx Aspirin EC [Halfprin EC] 81 mg PO QDAY #30 tablet. 04/03/21 Unknown Rx Cariprazine HCl [Vraylar] 4.5 mg PO QDAY 04/03/21 04/03/21 04/01/21 09:00 History Panax Ginseng 04/03/21 Unknown History Pantoprazole [Protonix TAB] 40 mg PO QDAY 04/03/21 04/03/21 04/01/21 09:00 History Ranolazine ER [Ranexa ER] 500 mg PO BID 04/03/21 04/03/21 04/01/21 09:00 History Torsemide [Demadex] 5 mg PO QDAY 04/03/21 04/03/21 04/01/21 09:00 History amLODIPine 2.5 mg PO DAILY 04/03/21 04/03/21 04/01/21 08:45 History levETIRAcetam [Keppra TAB] 1,000 mg PO BID 04/03/21 04/03/21 04/01/21 09:00 History Active Meds: Active Medications Acetaminophen (Acetaminophen 325 Mg Tab) 650 mg PO Q4H PRN PRN Reason: Pain MILD(1-3)/Fever >100.5/SARAVIA Aspirin (Aspirin Ec 325 Mg Tab) 325 mg PO QDAY [facility] Last Admin: 04/03/21 11:43 Dose: Not Given Azithromycin (Azithromycin 250 Mg Tab) 500 mg PO QHS DELFINA Stop: 04/06/21 22:01 Last Admin: 04/03/21 21:15 Dose: 500 mg Heparin Sodium (Porcine) (Heparin 5,000 Unit/1 Ml Vial) 5,000 unit SUB-Q Q8HR [facility] Last Admin: 04/04/21 06:47 Dose: 5,000 unit Sodium Chloride (Nacl 0.45% 1000 Ml) 1,000 mls @ 75 mls/hr IV DIRECT DELFINA Last Admin: 04/03/21 23:05 Dose: 75 mls/hr Ceftriaxone Sodium (Rocephin/Ns 2 Gm/100 Ml) 2 gm in 100 mls @ 200 mls/hr IV Q24H DELFINA; Protocol Last Admin: 04/03/21 21:15 Dose: 200 mls/hr Magnesium Hydroxide (Magnesium Hydroxide (Mom) Oral Liqd Udc) 30 ml PO Q4H PRN PRN Reason: Constipation Morphine Sulfate (Morphine 2 Mg/1 Ml Inj) 2 mg IV Q4H PRN PRN Reason: Pain, Moderate (4-6) Last Admin: 04/04/21 08:23 Dose: 2 mg Morphine Sulfate (Morphine 4 Mg/1 Ml Inj) 4 mg IV Q4H PRN PRN Reason: Pain , Severe (7-10) Ondansetron HCl (Ondansetron 4 Mg/2 Ml Inj) 4 mg IV Q8H PRN PRN Reason: Nausea And Vomiting Last Admin: 04/04/21 02:58 Dose: 4 mg Sodium Chloride (Sodium Chloride 0.9% 10 Ml Flush Syringe) 10 ml IV BID DELFINA Last Admin: 04/03/21 21:24 Dose: 10 ml Sodium Chloride (Sodium Chloride 0.9% 10 Ml Flush Syringe) 10 ml IV PRN PRN PRN Reason: LINE FLUSH Sodium Chloride (Sodium Chloride 0.9% 10 Ml Flush Syringe) 10 ml IV PRN PRN PRN Reason: LINE FLUSH Tramadol HCl (Tramadol 50 Mg Tab) 50 mg PO Q6H PRN PRN Reason: Pain, Moderate (4-6) Physical Examination - Physical Exam Narrative exam: Physical Exam: Constitutional: Alert, cooperative. No acute distress Head, Ears, Nose: Normocephalic, atraumatic. External ears, nose normal Eyes: Conjunctivae/corneas clear. No icterus. No ptosis. Neck: Supple, no meningeal signs Oral: dentition fair, no thrush Cardiovascular: S1, S2 normal. Respiratory: Good air entry, clear to auscultation bilaterally GI: Soft, non-tender; bowel sounds normal. No peritoneal signs. Musculoskeletal: No pedal edema, no cyanosis. Skin: No rash or abscess Hem/Lymphatic: No palpable cervical or supraclavicular nodes. No lymphangitis Psych: Mood ok. Affect normal Neurological: Awake, alert, oriented. No gross abnormality - Constitutional Vitals: Vital Signs Temp Pulse Resp BP Pulse Ox 98.1 F 72 20 127/69 96 04/04/21 06:01 04/04/21 06:01 04/04/21 08:23 04/04/21 06:01 04/04/21 06:01 Temperature -Last 24 Hours Temperature 98.1 F Temperature 98.5 F Temperature 97.8 F Results - Labs CBC & Chem 7: 04/03/21 03:28 04/03/21 03:28 Assessment and Plan Cultures: COVID-19 PCR: Negative A/P: 60-year-old female past medical history COPD, lupus, recent COVID-19 now with: #Recent COVID-19: Now without symptoms and no evidence of residual PNA on the CXR. #Chest pain: recent COVID may have caused thrombotic environment, though now PCR negative so that risk likely decreased. Recs: -Antibiotics unneeded in patient with no symptoms and normal CXR. Thank you for the consult, we will follow. Lynn Raphael MD [facility] O: [phone] F: [phone]
--- NOTE | 2021-04-04 12:48 | Progress Note ---
Assessment and Plan - Patient Problems (1) Chest pain Current Visit: Yes Status: Acute Plan to address problem: Chest pain was atypical, serial EKGs and troponin levels were negative. A Lexiscan thallium stress test was ordered for today. It will be recalled that 4 years ago, the patient had a cardiac catheterization at this hospital which demonstrated angiographically normal coronary arteries, and a mild nonischemic cardiomyopathy with ejection fraction of 45%. Subjective Date of service: 04/04/21 Interval history: 60-year-old woman who ostensibly presented to the hospital with atypical chest pain which followed nearly 2 weeks of recovery from an acute Covid infection. On presentation here her Covid test had turned negative. Serial ECGs and serial troponin levels are normal. Chest x-ray was negative. Today, she was referred for a Lexiscan thallium stress test for chest pain assessment. It will be recalled that 4 years ago, the patient had a cardiac catheterization at this hospital which demonstrated angiographically normal coronary arteries, and a mild nonischemic cardiomyopathy with ejection fraction of 45%. Objective Vital Signs Temp Pulse Resp Resp BP BP Pulse Ox 04/04/21 08:23 20 04/04/21 06:01 98.1 F 72 20 127/69 96 04/04/21 03:28 17 04/04/21 02:58 17 04/04/21 01:36 96 04/03/21 23:52 68 105/64 04/03/21 22:26 98.5 F 20 79/37 04/03/21 22:23 67 85/35 93 04/03/21 22:00 18 04/03/21 21:47 17 04/03/21 21:35 84 17 134/78 96 04/03/21 21:23 74 18 144/77 95 04/03/21 16:42 97.8 F 18 86/49 - Physical Examination General: No Apparent Distress HEENT: Positive: PERRL Neck: Positive: neck supple Cardiac: Positive: Reg Rate and Rhythm Lungs: Positive: Decreased Breath Sounds Neuro: Positive: Grossly Intact Abdomen: Positive: Soft Skin: Positive: Clear Extremities: Absent: edema
--- NOTE | 2021-04-04 13:53 | Nuclear Medicine Report ---
APPROVED REPORT Exam: Nuclear Stress Test Indication: Chest pain BMI: 0 Stress Test Details HR Max Heart Rate (APMHR): 162 bpm Target HR (85% APMHR): 137 bpm BP ECG Resting ECG: Sinus Rhythm Stress ECG: Sinus Rhythm ST Change: None Recovery ECG: Sinus Rhythm Recovery ST Change: None Recovery Arrhythmia: None Clinical Reason for Termination: Completed protocol Stress ECG Conclusion The patient underwent a pharmacologic stress test, no chest pain and no ST changes of ischemia. Myocardial perfusion images dictated separately. NM EXAM: Myocardial Perfusion REST/STRESS Imaging Protocol: Rest Tc-99m/Stress Tc-99m 1 day Resting Data Rest SPECT myocardial perfusion imaging was performed in supine position 45 minutes following the intravenous injection of 10 mCi of Tc-99m Myoview. Time of rest injection: 0700 Date: 04/04/2021 Pharmacologic Stress Pharmacologic stress test was performed by injecting Regadenoson 0.4 mg IV push followed by the intravenous injection of 28 mCi of Tc-99m Myoview. Time of stress injection: 1200 Date: 04/04/2021 Gated Stress SPECT was performed 30 minutes after stress injection. Study Data TID = 1.01. Perfusion Wall Motion There is normal left ventricular systolic function, ejection fraction was calculated at 76% by gated SPECT analysis. Nuclear Conclusion ECG Findings: negative for ischemia Clinical Findings: negative for ischemia Left Ventricular Function: normal Risk Study: low Small fixed basal anterior defect appears likely breast attenuation artifact. There is no ischemic defects on the study, there is normal left ventricular systolic function, ejection fraction 76%. Negative study. Conclusion The patient underwent a pharmacologic stress test, no chest pain and no ST changes of ischemia. Myocardial perfusion images dictated separately.
[2021-04-04] MEDS: ASPIRIN EC 325 MG TAB PO SCH (14:52)
[2021-04-04] MEDS ORDERED: SODIUM CHLORIDE 0.9% 50 ML IVPB IV PRN (14:53)
--- NOTE | 2021-04-04 15:55 | Discharge Summary ---
Providers - Providers Date of Admission: 04/02/21 23:44 Date of discharge: 04/04/21 Attending physician: CITLALLI MESA 04/02/21 Consult to Cardiac Rehabilitation [CONS] Routine Reason For Exam: Phase I 04/02/21 23:44 Consult to Cardiology [CONS] Routine Consulting Provider: HAYES DOWNS Reason For Exam: CHEST PAIN 04/03/21 00:06 Consult to Physician [CONS] Routine Comment: Consulting Provider: MARISA BRADLEY Physician Instructions: Reason For Exam: Covid Pneumonia Hospitalization Condition: Stable Disposition: 30 STILL A PATIENT Exam - Constitutional Vitals: Temp Pulse Resp BP Pulse Ox 98.1 F 72 20 105/57 96 04/04/21 06:01 04/04/21 06:01 04/04/21 14:52 04/04/21 13:03 04/04/21 06:01 Plan Activity: advance as tolerated Weight Bearing Status: Weight Bear as Tolerated Diet: low fat, low salt Follow up with: [facility] [Other] - 3-5 Days Prescriptions: Aspirin EC [Halfprin EC] 81 mg PO QDAY #30 tablet.
[2021-04-04] MEDS ORDERED: NEOMY 3.5 MG/BACIT 400 UNITS/POLY B 5000 UNITS/GM OINT PACKET TP ONE (16:00)
[2021-04-04 18:23] VITALS: BP 146/67
--- NOTE | 2021-04-05 05:34 | Consultation ---
DATE OF CONSULTATION: 04/03/2021 HISTORY OF PRESENT ILLNESS: The patient is a 60-year-old female known to Dr. Velarde with multiple medical problems including a history of heart failure and coronary artery disease. She has many medical problems that include lupus, hypertension, COPD, bipolar disorder, cirrhosis and chronic kidney disease. She has been compliant with her medications, but she continues to smoke and she describes recurrent episodes of exertional chest pain lasting about 10 minutes each. She has chronic dyspnea on exertion and ankle swelling. She does not follow a strict diet. She has diffuse arthritis from lupus. She recently had COVID positive test. She describes precordial tightness with associated shortness of breath and this was similar to her previous coronary symptoms. Past history, medicines, see the nurse's list. ALLERGIES: Multiple including DILANTIN, DEPAKOTE, TETRACYCLINE, NSAIDS medications. FAMILY HISTORY: Noncontributory. PAST SURGICAL HISTORY: Operations, appendectomy, left knee, left shoulder, hysterectomy, cervical spine, lumbosacral spine. REVIEW OF SYSTEMS: She states that she is homeless and does not describe any rashes. No fever or chills. PHYSICAL EXAMINATION: GENERAL: Well developed markedly overweight, no acute distress. HEENT: Alert, oriented, cooperative, mental status normal. EYES, NOSE AND THROAT: Unremarkable. Neck reveals mild JVD. There are no bruits. NECK: Supple, no masses. LUNGS: Diminished breath sounds, no rales or rhonchi. HEART: Regular rhythm. Soft S4. No murmurs or rubs. ABDOMEN: Soft, nontender, no masses. EXTREMITIES: No cyanosis, clubbing. There is mild pedal edema. Peripheral pulses are intact, but diminished. NEUROLOGICAL: Symmetrical. SKIN: Clear. IMPRESSION: 1. History of coronary artery disease with unstable angina. 2. Chronic congestive heart failure, probably systolic. 3. Recent COVID infection. 4. Systemic lupus erythematosus with chronic arthritis. 5. Hypertension. 6. Obesity. 7. Chronic obstructive pulmonary disease. 8. Bipolar. 9. 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 10. Chronic kidney disease. 11. Nicotine dependence. PLAN: Aggressive medical therapy. Repeat echo and stress test to check for progression of disease. Thank you for this consultation. TID: [id number] RECEIPT: [id number] JDS/AJYE
--- NOTE | 2021-04-07 13:23 | Electrocardiograph Report ---
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
--- NOTE | 2021-04-07 13:26 | Electrocardiograph Report ---
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
--- NOTE | 2021-04-07 13:28 | Electrocardiograph Report ---
[facility] Test Date: 2021-04-03 Test Time: 11:36:50 Pat Name: CHIDI THOMPSON Department: Room: A385 Gender: F [employer] Member: GUANAKITO : 1960 Requested By: GUSTABO LEBRON Order Number: [id number] Reading MD: Aashish Vora Measurements Intervals [place] Rate: 62 P: 94 KS: 154 QRS: -20 QRSD: 128 T: 61 QT: 436 QTc: 445 Interpretive Statements Sinus rhythm Right bundle branch block Compared to ECG 04/03/2021 08:31:47 No significant changes Electronically Signed On 04-07-2021 13:27:33 EST by Aashish Vora
== END 2021-04-04 19:08 | disposition home or self-care (01) ==
LOC: ED 16:48 → 3A 23:44
PROVIDERS: ADMIT Internal Medicine Geriatric Medicine; ATTEND Internal Medicine
DX: R07.89 Other chest pain (principal); Z20.822 Contact with and (suspected) exposure to COVID-19; M32.9 Systemic lupus erythematosus, unspecified; R56.9 Unspecified convulsions; J12.82 Pneumonia due to coronavirus disease 2019; M19.90 Unspecified osteoarthritis, unspecified site; N13.0 Hydronephrosis with ureteropelvic junction obstruction; I50.9 Heart failure, unspecified; N18.9 Chronic kidney disease, unspecified; J44.9 Chronic obstructive pulmonary disease, unspecified; K74.60 Unspecified cirrhosis of liver; F31.9 Bipolar disorder, unspecified; F17.210 Nicotine dependence, cigarettes, uncomplicated; E66.9 Obesity, unspecified; Z90.49 Acquired absence of other specified parts of digestive tract; Z96.652 Presence of left artificial knee joint; Z79.899 Other long term (current) drug therapy; Z98.890 Other specified postprocedural states; Z79.82 Long term (current) use of aspirin; Z68.35 Body mass index [BMI] 35.0-35.9, adult
CPT/HCPCS: 36415; 71045; 78452; 80048; 80076; 83690; 83880; 84484; 85025; 85379; 85610; 85730; 87040; 93005; 93010; 93017; 93306; 96361; 96365; 96366; 96367; 96372; 96375; 96376; 99285; A9502; G0378; J0456; J0696; J1642; J1644; J2270; J2405; J2785; J7030; U0003; J3490; C8929